=== PATIENT | male | born 1955 | race Caucasian/White ===

== ENCOUNTER 2021-10-12 00:47 | Outpatient (CLI) | payer MEDICARE, OTHER, SELFPAY ==
[2021-10-12 09:20] VITALS: BP 143/87; PULSE 90; RESP 18; TEMP 36.9; O2SAT 94
[2021-10-12] MEDS: Normal Saline 500 ML 30 ML IV (09:35)
[2021-10-12 09:40] VITALS: BP 115/75; PULSE 88; RESP 16; TEMP 36.6; O2SAT 94
[2021-10-12 10:01] VITALS: BP 123/80; PULSE 88; RESP 18; TEMP 36.7; O2SAT 95
[2021-10-12] MEDS: Normal Saline Flush 10 ML SYR IVP (10:17)
[2021-10-12 10:57] VITALS: BP 125/82; PULSE 84; RESP 18; TEMP 36.6; O2SAT 94
== END 2021-10-12 00:48 | disposition home or self-care (01) ==
LOC: INF 00:48
PROVIDERS: Visit Provider Family Medicine
DX: U07.1 COVID-19 (principal)
CPT/HCPCS: 96365

== ENCOUNTER 2022-02-11 08:53 | Day surgery (SDC) | payer MEDICARE, OTHER, SELFPAY ==
[2022-02-11 09:21] VITALS: BP 136/86; PULSE 77; RESP 18; TEMP 36.3; O2SAT 98
[2022-02-11] MEDS: Tropicam./Phenyleph. (1/2.5%) 5 ML BTL OS ×3 (09:30→09:44)
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
[2022-02-11 09:50] VITALS: BMI 29.7
[2022-02-11] MEDS: Tetracaine 0.5% 4 ML BTL OS (10:17)
[2022-02-11] MEDS: Balanced Salt Soln.-PLUS 500 ML BAG (10:17)
[2022-02-11] MEDS: Lidocaine 2% Jelly 6 ML SYR (10:18)
[2022-02-11] MEDS: Duovisc Viscoelastic System EACH 1 EACH (10:18)
[2022-02-11] MEDS: Povidone-Iodine Ophth 30 ML BTL (10:19)
[2022-02-11 10:40] VITALS: BP 97/85; PULSE 75; RESP 17; TEMP 36.1; O2SAT 94
--- NOTE | 2022-02-11 10:42 | W.PM.DSUDISC ---
Discharge Plan Disposition Patient Disposition: HOME Condition: Good Discharge Details Attending Provider: Mainor Cuadra Primary Care Provider: Lashae Britton Home Meds and New Rx's Prescriptions: No Action metformin 500 mg Tablet 500 mg PO BID 0RF triamcinolone acetonide 0.5 % Cream 1 applic TOPICAL DIRECTED 0RF metoprolol succinate 100 mg Tablet Extended Release 24 Hr 100 mg PO HS 0RF losartan-hydrochlorothiazide 100-25 mg Tablet 1 tab PO DAILY 0RF terbinafine HCl 250 mg Tablet 250 mg PO DAILY 0RF multivitamin Tablet 1 tab PO DAILY 0RF Fish Oil Capsule 1 cap PO DAILY 0RF cholecalciferol (vitamin D3) [Vitamin D3] 50 mcg (2,000 unit) Tablet 50 mcg PO DIRECTED 0RF Discharge Instructions Stand Alone Forms: Post-op Topical Cataract, Cat Keane ([facility]U) Discharge Orders Discharge Orders: Discharge Order (Routine); Ordered 02/11/22 Ordered By: Mainor Cuadra DS: Diagnosis Discharge Diagnosis (1) Nuclear sclerotic cataract of right eye: Status: Resolved (2) Cortical cataract of right eye: Status: Resolved
--- NOTE | 2022-02-11 10:43 | W.PM.OP ---
Date of service: 02/11/22 Time of Service: 10:43 Operative Note Operative Note DATE OF PROCEDURE: 02/11/22 PRE-OP DIAGNOSIS: Nuclear/cortical cataract, right eye POST-OP DIAGNOSIS: same PROCEDURE: Cataract extraction using phacoemulsification with intraocular lens implant, right eye SURGEON: Mainor Cuadra ANESTHESIA TYPE: Local By Surgeon and MAC Refer to Anesthesia Record ESTIMATED BLOOD LOSS: 0 PATHOLOGY: none sent COMPLICATIONS: None Patient was transported to: same day Patient's condition: stable Implants: Carlos Enrique [employer] Carlos Enrique/RANJITH Tecnis [id number] Indications: Progressive visual loss due to cataract, right eye Procedure Description: CATARACT SURGERY OPERATIVE REPORT PREOPERATIVE DIAGNOSIS: 1. Nuclear/cortical cataract, POSTOPERATIVE DIAGNOSIS: Same OPERATION: 1. Cataract extraction using phacoemulsification with posterior chamber intraocular lens implant, right eye. IOL: IOL Assurance Sourcing Manager/Model: Carlos Enrique & Carlos Enrique / RANJITH Tecnis [id number] IOL Power: + 70 diopters IOL Serial Number: [id number] Optic Diameter: 6.0mm Haptic/Overall Diameter: 13.0mm PHACO INFO: [facility] Vision System with OZil and Active [employer]uid[employer] Cumulative Dispersed Energy (CDE): 8.6 seconds SURGEON: Mainor Cuadra MD, JUANA ANESTHESIA: Monitored Anesthesia Care (MAC), with local sub-tenon's anesthetic infiltration COMPLICATIONS: None SPECIMENS: None INDICATIONS FOR PROCEDURE: The patient is a 66-year-old gentleman with history of diminished visual acuity in his right eye secondary to the development of nuclear and cortical cataract. The option of cataract surgery was offered to the patient and he felt he was symptomatic enough that he wished to PROCEDURE: The correct surgical eye was identified and marked as the right eye and the pupil was dilated in the preoperative area using mydriatics and cycloplegics. The dilated pupil size was seven-point mm. Oral sedation was administered in the form of an Imprimis MKO Melt (midazolam 3mg/ketamine 25mg/ondansetron 2mg). The patient was brought to the operating room where cardiopulmonary monitoring was instituted and surgical time-out was performed, confirming the correct operative eye and IOL power. Topical anesthesia was administered and ophthalmic povidone-iodine 5% was instilled into the conjunctival fornices. Lidocaine gel was applied to the cornea and the terri-ocular area was prepped with Betadine 10% solution and draped in the usual sterile fashion for intraocular surgery, including an aperture drape. A Tegaderm transparent film dressing was cut in half and used to cover the lashes and lid margins. Care was taken to sequester the lashes and lid margins under the Tegaderm dressing. A lid speculum was placed between the lids of the operative eye and the José Miguel [employer] operating microscope was maneuvered into position. Dora scissors were then used to make a conjunctival buttonhole approximately 6mm posterior to the limbus in the inferonasal quadrant. Blunt dissection was carried out to expose bare sclera, and a blunt-tipped sub-tenon?s anesthesia cannula was introduced and passed posteriorly along the globe where non-preserved plain lidocaine was injected into posterior sub-Tenon?s space. A sideport knife was used to make a paracentesis port inferotemporally. Intraocular phenylephrine/lidocaine was injected into the anterior chamber. The anterior chamber was filled with viscoelastic. A 2.4mm keratome knife was used to create a half-thickness groove at the limbus and then to construct a three-plane near-clear corneal tunnel extending 2.0mm into clear cornea superiortemporally. A flap was raised on the anterior capsule and capsulorhexis forceps were used to complete a continuous curvilinear capsulorhexis of 5 mm. Balanced salt solution was then used to perform cortical cleaving hydrodissection and nuclear hydrodelineation until the lens could be freely rotated within the capsular bag. The lens nucleus was then disassembled and removed within the capsular bag and iris plane using phacoemulsification. Residual cortical material was removed using the I/A handpiece. The posterior capsule was carefully polished to remove as much residual lens epithelial cells as safely possible. The capsular bag was then inflated and the anterior chamber deepened with viscoelastic. The lens implant described above was inserted into the capsular bag using the RANJITH [place] Injector. A Kuglen hook was used to dial the IOL into position. Residual viscoelastic was then removed first from posterior to the IOL, then from the anterior chamber using the I/A handpiece. The lens implant was noted to center nicely within the capsular bag. The incisions were stromally hydrated, and the anterior chamber was reformed using BSS. Then 0.5cc of moxifloxacin 1.0mg/ml were injected into the capsular bag and anterior chamber. The incisions were checked with a Weck spear and found to be secure. Several drops of ophthalmic povidone-iodine 5% were then applied to the eye followed by two drops of Imprimis combination prednisolone/moxifloxacin/nepafenac solution. The drapes were removed and a clear plastic protective eye shield was placed over the eye. The patient was then returned to Same Day Surgery in stable condition.
--- NOTE | 2022-02-11 10:56 | W.ANESPOSTOP ---
Postoperative Evaluation Date, Time and Location Date Performed: 02/11/22 Time Performed: 10:45 Patient Location: Day Surgery Unit Vital Signs Most Recent Imported Vital Signs: Most Recent Vital Signs Temp Pulse Resp BP Pulse Ox 36.1 C L 75 17 97/85 L 94 02/11/22 10:40 02/11/22 10:40 02/11/22 10:40 02/11/22 10:40 02/11/22 10:40 Pain Score Most Recent Pain Score: Most Recent Pain Score Pain Level 0 02/11/22 10:40 Assessment Mental Status: Awake (Alert & Oriented to Patient Baseline) Airway and Respiratory Function: Patent airway with normal (patient baseline) respiratory exam Cardiovascular Function: Hemodynamically Stable Hydration Status: Adequately Hydrated Nausea & Vomiting: No Nausea or Vomiting Pain: Pt. Denies Any Pain Peripheral Nerve Block: Patient did not receive a nerve block
[2022-02-11 11:05] VITALS: BP 104/71; PULSE 73; RESP 16; TEMP 36.3; O2SAT 94
== END 2022-02-11 11:18 | disposition home or self-care (01) ==
PROVIDERS: PCP Physician Assistant Medical; Visit Provider Ophthalmology
PROC: (CPT 66984; principal; 2022-02-11 10:30)
DX: H25.11 Age-related nuclear cataract, right eye (principal); E11.9 Type 2 diabetes mellitus without complications; E78.1 Pure hyperglyceridemia; E55.9 Vitamin D deficiency, unspecified
CPT/HCPCS: 66984; V2632

== ENCOUNTER 2022-06-03 07:25 | Day surgery (SDC) | payer MEDICARE, OTHER, SELFPAY ==
[2022-06-03 07:25] VITALS: BP 127/75; PULSE 67; RESP 18; TEMP 36.5; O2SAT 98
[2022-06-03] MEDS: Tropicam./Phenyleph. (1/2.5%) 5 ML BTL OS ×3 (07:40→07:53)
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
[2022-06-03 08:13] VITALS: BMI 28.7
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
[2022-06-03] MEDS: Lidocaine 2% Jelly 6 ML SYR (08:50)
[2022-06-03] MEDS: Tetracaine 0.5% 4 ML BTL OS (08:50)
[2022-06-03] MEDS: Balanced Salt Soln.-PLUS 500 ML BAG (08:55)
[2022-06-03] MEDS: Povidone-Iodine Ophth 30 ML BTL (09:13)
[2022-06-03 09:17] VITALS: BP 119/79; PULSE 66; RESP 16; TEMP 36.9; O2SAT 96
--- NOTE | 2022-06-03 09:17 | W.PM.DSUDISC ---
Discharge Plan Disposition Patient Disposition: HOME Condition: Good Discharge Details Attending Provider: Mainor Cuadra Primary Care Provider: Lashae Britton Home Meds and New Rx's Prescriptions: No Action metformin 500 mg Tablet 500 mg PO BID triamcinolone acetonide 0.5 % Cream 1 applic TOPICAL DIRECTED metoprolol succinate 100 mg Tablet Extended Release 24 Hr 100 mg PO HS losartan-hydrochlorothiazide 100-25 mg Tablet 1 tab PO DAILY terbinafine HCl 250 mg Tablet 250 mg PO DAILY multivitamin Tablet 1 tab PO DAILY Fish Oil Capsule 1 cap PO DAILY cholecalciferol (vitamin D3) [Vitamin D3] 50 mcg (2,000 unit) Tablet 50 mcg PO DIRECTED Discharge Instructions Stand Alone Forms: Post-op Topical Cataract, Cat Keane ([facility]U) Discharge Orders Discharge Orders: Discharge Order (Routine); Ordered 06/03/22 Ordered By: Mainor Cuadra DS: Diagnosis Discharge Diagnosis (1) Nuclear sclerotic cataract of left eye: Status: Resolved (2) Cortical cataract of left eye: Status: Resolved
--- NOTE | 2022-06-03 09:18 | ROE_ITS ---
Date of service: 06/03/22 Time of Service: 09:18 Operative Note Operative Note DATE OF PROCEDURE: 06/03/22 PRE-OP DIAGNOSIS: Nuclear/cortical cataract, left eye POST-OP DIAGNOSIS: same PROCEDURE: Cataract extraction using phacoemulsification with intraocular lens implant, left eye SURGEON: Mainor Cuadra ANESTHESIA TYPE: Local By Surgeon and MAC Refer to Anesthesia Record PATHOLOGY: none sent COMPLICATIONS: None Patient was transported to: same day Patient's condition: stable Implants: Carlos Enrique and Carlos Enrique / [employer] Tecnis [id number] Indications: Progressive decreased vision due to cataract, left eye Procedure Description: CATARACT SURGERY OPERATIVE REPORT PREOPERATIVE DIAGNOSIS: 1. Nuclear/cortical cataract, left eye POSTOPERATIVE DIAGNOSIS: Same OPERATION: 1. Cataract extraction using phacoemulsification with posterior chamber intraocular lens implant, left eye. IOL: IOL Automotive Light Mechanic/Model: Carlos Enrique & Carlos Enrique / RANJITH Tecnis [id number] IOL Power: + 17.0 diopters IOL Serial Number: [id number] Optic Diameter: 6.0 mm Haptic/Overall Diameter: 13.0 mm PHACO INFO: [employer] Vision System with OZil and Active Fluidics Cumulative Dispersed Energy (CDE): 6.03 seconds SURGEON: Mainor Cuadra MD, JUANA ANESTHESIA: Monitored A [facility] (MAC), with local sub-tenon's anesthetic infiltration COMPLICATIONS: None SPECIMENS: None INDICATIONS FOR PROCEDURE: The patient is a 66-year-old gentleman with history of diminished visual acuity in both eyes secondary to development of bilateral cataract. He has already undergone cataract surgery in the right eye on 02/11/2022 and is doing well postoperatively. He now presents for cataract surgery in the left eye. PROCEDURE: The correct surgical eye was identified and marked as the left eye and the pupil was dilated in the preoperative area using mydriatics and cycloplegics. The dilated pupil size was 7.0 mm. . The patient elected to proceed without oral sedation. The patient was brought to the operating room where cardiopulmonary monitoring was instituted and surgical time-out was performed, confirming the correct operative eye and IOL power. Topical anesthesia was administered and ophthalmic povidone-iodine 5% was instilled into the conjunctival fornices. Lidocaine gel was applied to the cornea and the terri-ocular area was prepped with Betadine 10% solution and draped in the usual sterile fashion for intraocular surgery, including an aperture drape. A Tegaderm transparent film dressing was cut in half and used to cover the lashes and lid margins. Care was taken to sequester the lashes and lid margins under the Tegaderm dressing. A lid speculum was placed between the lids of the operative eye and the José Miguel [employer] operating microscope was maneuvered into position. Dora scissors were then used to make a conjunctival buttonhole approximately 6mm posterior to the limbus in the inferonasal quadrant. Blunt dissection was carried out to expose bare sclera, and a blunt-tipped sub-tenon?s anesthesia cannula was introduced and passed posteriorly along the globe where non- preserved plain lidocaine was injected into posterior sub-Tenon?s space. A sideport knife was used to make a paracentesis port superiorly/superiortemporally. Intraocular phenylephrine/lidocaine was injected int the anterior chamber.. At this point, the patient decided he wanted oral sedation. Oral sedation was administered in the form of an Imprimis MKO Melt (midazolam 3mg/ketamine 25mg/ondansetron 2mg) The anterior chamber was filled with viscoelastic. A keratome knife was used to construct a 2-plane near-clear corneal tunnel extending 2.0mm into clear cornea temporally. A flap was raised on the anterior capsule and capsulorhexis forceps were used to complete a continuous curvilinear capsulorhexis of 5.0 mm. Balanced salt solution was then used to perform cortical cleaving hydrodissection and nuclear hydrodelineation until the lens could be freely rotated within the capsular bag. The lens nucleus was then disassembled and removed within the capsular bag and iris plane using phacoemulsification. Residual cortical material was removed using the 45-degree angled silicone I/A tip with 0.3mm port. The posterior capsule was carefully polished to remove as much residual lens epithelial cells as safely possible. The capsular bag was then inflated and the anterior chamber deepened with viscoelastic. The lens implant described above was inserted into the capsular bag using the RANJITH Chandler Injector. A Kuglen hook was used to dial the IOL into position. Residual viscoelastic was then removed first from posterior to the IOL, then from the anterior chamber using the I/A handpiece. The lens implant was noted to center nicely within the capsular bag. The incisions were stromally hydrated, and the anterior chamber was reformed using BSS. Then 0.5cc of moxifloxacin 1.0mg/ml were injected into the capsular bag and anterior chamber. The incisions were checked with a Weck spear and found to be secure. Several drops of ophthalmic povidone-iodine 5% were then applied to the eye followed by two drops of Imprimis combination prednisolone/moxifloxacin/nepafenac solution. The drapes were removed and a clear plastic protective eye shield was placed over the eye. The patient was then returned to Same Day Surgery in stable condition.
--- NOTE | 2022-06-03 09:31 | W.ANESPOSTOP ---
Postoperative Evaluation Date, Time and Location Date Performed: 06/03/22 Time Performed: : Patient Location: Day Surgery Unit Vital Signs Most Recent Imported Vital Signs: Most Recent Vital Signs Temp Pulse Resp BP Pulse Ox 36.9 C 66 16 119/79 96 06/03/22 09:17 06/03/22 09:17 06/03/22 09:17 06/03/22 09:17 06/03/22 09:17 Pain Score Most Recent Pain Score: Most Recent Pain Score Pain Level 0 06/03/22 09:17 Assessment Mental Status: Awake (Alert & Oriented to Patient Baseline) Airway and Respiratory Function: Patent airway with normal (patient baseline) respiratory exam Cardiovascular Function: Hemodynamically Stable Hydration Status: Adequately Hydrated Nausea & Vomiting: No Nausea or Vomiting Pain: Pt. Denies Any Pain Peripheral Nerve Block: Patient did not receive a nerve block
[2022-06-03 09:46] VITALS: BP 94/56; PULSE 63; RESP 16; TEMP 36.3; O2SAT 96
== END 2022-06-03 09:51 | disposition home or self-care (01) ==
PROVIDERS: PCP Physician Assistant Medical; Visit Provider Ophthalmology
PROC: (CPT 66984; principal; 2022-06-03 09:30)
DX: H25.12 Age-related nuclear cataract, left eye (principal)
CPT/HCPCS: 66984; V2632

== ENCOUNTER 2023-06-12 17:57 | Outpatient (CLI) | payer MEDICARE, OTHER, SELFPAY ==
--- NOTE | 2023-06-12 | DI.RAD_ITS ---
Exam(s) XR CHEST 2V PA LATERAL EXAM: XR CHEST 2V PA LATERAL CLINICAL HISTORY: SHORTNESS OF BREATH TECHNIQUE: 2D digital imaging was performed of the chest. Two images were obtained. PA and lateral views were obtained. COMPARISON: No exams were available for comparison FINDINGS: MEDIASTINUM: There is prominence of the right hilum. HEART: Normal. PULMONARY VASCULATURE: Normal. LUNGS: There are bilateral basilar linear infiltrates present, left greater than right. PLEURAL SPACE: No pleural effusion or pneumothorax. BONE:Within normal limits for the patient's age. OTHER FINDINGS:Normal. IMPRESSION: 1. Bilateral basilar infiltrates. This may represent atelectasis, pneumonia or scarring. 2. Prominence of the right hilum. Adenopathy, central mass or pulmonary vascular enlargement/pulmona ry hypertension should be considered. 3. CT scan of the chest should be considered for further evaluation. Unexpected findings DATA REPOSITORY: RADIATION DOSE DELIVERED:
--- NOTE | 2023-06-12 18:38 | DI.VRAD_ITS ---
PROCEDURE INFORMATION: Exam: XR Chest Exam date and time: 06/12/2023 6:09 PM Age: 68 years old Clinical indication: Shortness of breath TECHNIQUE: Imaging protocol: Radiologic exam of the chest. Views: 2 views. COMPARISON: No relevant prior studies available. FINDINGS: Lungs: There is pulmonary vascular congestion with cephalization of flow and slightly increased interstitial markings. Linear opacities in both lung bases most likely reflect atelectasis. Pleural spaces: Unremarkable. No pleural effusion. No pneumothorax. Heart/Mediastinum: The heart is mildly enlarged. Bones/joints: Unremarkable. IMPRESSION: Cardiomegaly and mild vascular congestion. Bibasilar atelectasis. Dictated and Authenticated by: Junior Vyas MD. Ordering:HUBER Juarez MD
== END 2023-06-12 18:17 ==
LOC: DI 18:03
PROVIDERS: PCP Physician Assistant Medical; Visit Provider Family Medicine
DX: R91.8 Other nonspecific abnormal finding of lung field (principal); R59.0 Localized enlarged lymph nodes; I51.7 Cardiomegaly
CPT/HCPCS: 71046

== ENCOUNTER 2023-06-13 16:13 | Outpatient (CLI) | payer MEDICARE, OTHER, SELFPAY ==
[2023-06-13 13:57] LABS: Abs Immature Grans 0.07 10^3/uL (0.0-0.06); Absolute Basophil Count 0.05 10^3/uL (0.0-0.2); Absolute Eosinophil Count 0.16 10^3/uL (0.0-0.7); Absolute Lymphocyte Count 1.53 10^3/uL (1.2-3.4); Absolute Monocyte Count 0.63 10^3/uL (0.1-0.8); Absolute Neutrophil Count 7.44 10^3/uL (1.2-6.7); Basophils % 0.5; Eosinophils % 1.6; HCT 41.9 % (40.0-50.0); HGB 13.9 g/dL (13.5-17.5); Immature Grans % 0.7; Lymphocytes % 15.5; MCH 27.9 pg (27.0-33.0); MCHC 33.2 % (32.0-36.0); MCV 84 fL (80-95); MPV 8.9 fL (8.0-11.0); Monocytes % 6.4; Neutrophils % 75.3; Platelet Count 378 10^3/uL (130-400); RBC 4.99 10^6/uL (4.36-5.78); RDW 14.5 % (11.8-14.1); RDW-SD 43.7 fL; WBC 9.88 10^3/uL (4.4-10.8)
[2023-06-13 14:23] LABS: ALT 38 U/L (16-63); AST 26 U/L (15-37); Albumin 2.4 g/dL (3.4-5.0); Alkaline Phosphatase 63 U/L (46-116); Anion Gap 6.9 mmol/L (3-11); BUN 20 mg/dL (7-18); Bilirubin, Total 0.7 mg/dL (0.2-1.0); CO2 28.1 mmol/L (21.0-32.0); CREATININE 1.1 mg/dL (0.70-1.30); Calcium 9.2 mg/dL (8.5-10.1); Chloride 97 mmol/L (98-107); Estimated GFR 72.22 (mL/min/1.73m2); Glucose 139 mg/dL (74-106); NT-proBNP 276 pg/mL (<300); Potassium 3.9 mmol/L (3.5-5.1); Sodium 132 mmol/L (136-145); Total Protein 6.7 g/dL (6.4-8.2)
== END 2023-06-13 16:14 | disposition home or self-care (01) ==
LOC: LBO 16:15
PROVIDERS: PCP Physician Assistant Medical; Visit Provider Family Medicine
DX: R06.00 Dyspnea, unspecified (principal)
CPT/HCPCS: 36415; 80053; 83880; 85025

== ENCOUNTER → 2023-06-19 01:53 | Outpatient (CLI) | payer MEDICARE, OTHER, SELFPAY ==
--- NOTE | 2023-06-19 08:45 | DI.NM_ITS ---
APPROVED REPORT Conclusion This is a resting myocardial perfusion imaging study only. Myocardial perfusion appears normal Left ventricular chamber size and wall thickness also appear normal
== END ==
PROVIDERS: PCP Physician Assistant Medical; Visit Provider Family Medicine
DX: R06.09 Other forms of dyspnea (principal)
CPT/HCPCS: 93016; 93018; 78451

== ENCOUNTER 2023-06-19 11:37 | Inpatient (IN) | payer MEDICARE, OTHER, SELFPAY ==
[2023-06-19] VITALS (67 sets, daily range): BP systolic 70–120; BP diastolic 38–83; PULSE 66–93; RESP 16–35; TEMP 36.4–36.8; O2SAT 88–98
--- NOTE | 2023-06-19 11:30 | RT.EKG_ITS ---
APPROVED REPORT Exam: Resting ECG Reason for Exam: chf Patient Location: E HR:88 bpm ECG Measurements Heart Rate 88 AXIS FL 196 P 26 QRSd 138 QRS 23 QT 379 T -30 QTc 458 Conclusion Sinus rhythm.. V-rate 60- 99 Right bundle branch block. No ST segment or T wave abnormalities to suggest occlusive DC
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
[2023-06-19 12:10] LABS: Abs Immature Grans 0.26 10^3/uL (0.0-0.06); Absolute Basophil Count 0.09 10^3/uL (0.0-0.2); Absolute Monocyte Count 0.97 10^3/uL (0.1-0.8); Basophils % 0.3; HCT 43.1 % (40.0-50.0); HGB 14.2 g/dL (13.5-17.5); Immature Grans % 0.9; Lymphocytes % 3.8; MCH 27.6 pg (27.0-33.0); MCHC 32.9 % (32.0-36.0); MCV 84 fL (80-95); Monocytes % 3.2; Neutrophils % 91.8; Platelet Count 384 10^3/uL (130-400); RBC 5.14 10^6/uL (4.36-5.78); RDW 14.6 % (11.8-14.1); RDW-SD 44.3 fL
[2023-06-19 12:19] LABS: INR 1.1 (0.9-1.1); PTT Activated 24.5 sec (21.5-31.9); Prothrombin Time 11.3 sec (9.3-11.0)
[2023-06-19 12:28] LABS: ALT 39 U/L (16-63); AST 25 U/L (15-37); Albumin 2.6 g/dL (3.4-5.0); Alkaline Phosphatase 49 U/L (46-116); Anion Gap 10.8 mmol/L (3-11); BUN 35 mg/dL (7-18); Bilirubin, Total 0.8 mg/dL (0.2-1.0); CO2 27.2 mmol/L (21.0-32.0); CREATININE 1.8 mg/dL (0.70-1.30); Calcium 10.1 mg/dL (8.5-10.1); Chloride 93 mmol/L (98-107); Estimated GFR 39.99 (mL/min/1.73m2); Glucose 309 mg/dL (74-106); Magnesium 1.4 mg/dL (1.8-2.4); NT-proBNP 218 pg/mL (<300); Potassium 3.1 mmol/L (3.5-5.1); Sodium 131 mmol/L (136-145); Total Protein 6.8 g/dL (6.4-8.2); Troponin I < 50 ng/L (<or=60)
--- NOTE | 2023-06-19 12:30 | DI.CT_ITS ---
Exam(s) CT CHEST PE CTA EXAM: CT CHEST PE CTA CLINICAL HISTORY: short of breath, hypoxic. TECHNIQUE: Imaging Protocol: CT angiography of the chest was performed using pulmonary embolus nancy col. Multi planar reconstructions were performed. CONTRAST MATERIAL: Intravenous: Omnipaque 350 Contrast volume: 100 cc COMPARISON: CR XR CHEST 2V PA LATERAL from 06/19/2023 Chest x-ray 06/12/2023 FINDINGS: CHEST: PULMONARY ARTERIES: There are no intraluminal filling defects to suggest acute pulmonary emboli. LUNGS: There are extensive bilateral confluent pulmonary infiltrates, most prominent in the lower lob es, but also involving posterior segment of the right upper lobe and apical posterior segment of the left upper lobe as well as the right middle lobe and superior lingular segment of the left lung. Alt raven extensive, there is no cavitation of these infiltrates evident at this time. There are no asso ciated pleural effusions. MEDIASTINUM: Slightly enlarged hilar lymph nodes noted bilaterally. Also slightly enlarged subcarina l lymph nodes evident. There is no adenopathy in the anterior mediastinal fat and pretracheal region . Visualized thyroid unremarkable. CARDIAC: Heart size is upper normal. There is no pericardial effusion.Caliber of the thoracic aorta is within normal limits. There is no significant shift of the interventricular septum. PARTIALLY VISUALIZED UPPERMOST ABDOMEN: No obvious findings OSSEOUS: No significant osseous lesions.No fractures.. IMPRESSION: 1. No evidence of acute pulmonary emboli nor pulmonary infarction.. 2. However, there are extensive bilateral pulmonary infiltrates involving all lobes, most prominent i n both lower lobes. Suspect aspiration. 3. There are no pleural effusions. 4. There is mild bilateral hilar and subcarinal adenopathy, most probably reactive. Report called by myself to ER physician RADIATION DOSE DELIVERED: 336.96mGy.cm Total DLP DATA REPOSITORY: All CT scans at this facility are submitted to the National Radiology Data Registry (NRDR) Dose Index Registry (DIR) with the [employer] ([employer]). RADIATION OPTIMIZATION: All CT scans at this facility use at least one of these dose optimization te chniques: automated exposure control; mA and/or kV adjustment per patient size (includes targeted exa ms where dose is matched to clinical indication); or iterative reconstruction.
[2023-06-19 12:34] LABS: Absolute Lymphocyte Count 1.16 10^3/uL (1.2-3.4); Absolute Neutrophil Count 27.95 10^3/uL (1.2-6.7)
[2023-06-19 12:35] LABS: Diff Comment Diff Reviewed; RBC Morphology Normal; WBC 30.45 10^3/uL (4.4-10.8)
--- NOTE | 2023-06-19 12:37 | DI.RAD_ITS ---
Exam(s) XR CHEST 2V PA LATERAL EXAM: XR CHEST 2V PA LATERAL CLINICAL HISTORY: shortness of breath. TECHNIQUE: 2D digital imaging was performed. COMPARISON: CR,XR XR CHEST 2V PA LATERAL from 06/12/2023 CT,NM NM MPI REST OR STRESS ONLY from 06/19/2023 FINDINGS: 2 views: Heart size is normal. The mediastinum is not widened. Appearance of the lung matos is unchanged from 06/12/2023. There are significant infiltrates again noted in the lung matos bilaterally, predominately in the lower half of the lung matos both in the lower lobes, lingular segment of the left lung and right middle lobe. No associated pleural effusion s. No pulmonary edema. No pneumothorax. IMPRESSION: Persistent prominent infiltrates in both lungs without evidence of radiographic improvement when comp ared to 06/12/2023. No obvious pleural effusions. DATA REPOSITORY: RADIATION DOSE DELIVERED:
[2023-06-19 12:40] LABS: D-Dimer 802 ng/mlFEU (<500)
[2023-06-19 13:07] LABS: Lactate 5.2 mmol/L (0.6-1.4)
[2023-06-19] MEDS: Normal Saline 1,000 ML 500 ML IV (13:12)
[2023-06-19] MEDS: Potassium Chloride 20 MEQ TABCR 40 MEQ PO (13:13)
[2023-06-19] MEDS: PIPERACILLIN/TAZO 3.375 GM in Normal Saline 50 ML IVPB ×2 (13:13→21:06)
[2023-06-19] MEDS: Magnesium Gluconate 500 MG TAB 1000 MG PO (13:13)
[2023-06-19 13:43] LABS: COVID-19 PCR Negative (Negative); Influenza A PCR Negative (Negative); Influenza B PCR Negative (Negative); RSV PCR Negative (Negative)
[2023-06-19 13:45] LABS: Source Nasopharynx
[2023-06-19] MEDS: Normal Saline 500 ML IV (14:10)
[2023-06-19] MEDS: LINEZOLID 600 MG/300 ML BAG 300 MG IVPB (14:14)
[2023-06-19] MEDS: Omnipaque 350 MG/ML 100 ML BTL IJ (14:59)
[2023-06-19 15:00] LABS: Bilirubin Negative (Negative); Blood Negative (Negative); Clarity Clear (Clear); Glucose Negative (Negative); Ketones Negative (Negative); Leukocyte Esterase Negative (Negative); Nitrite Negative (Negative); Specific Gravity 1.015 (1.005-1.025); Urobilinogen 0.2 mg/dL (Up to 0.2); pH 6.5 (5-8)
[2023-06-19] MEDS: Normal Saline - Diluent 50 ML VIAL IJ (15:00)
[2023-06-19 15:01] LABS: Lactate 3.7 mmol/L (0.6-1.4)
[2023-06-19 15:03] LABS: pCO2 (Venous) 43 mmHg (41-51); pH (Venous) 7.43 (7.31-7.41); pO2 (Venous) 39 mmHg
[2023-06-19 15:04] LABS: HCO3 (Venous) 28 mmol/L (23-28); TCO2 (Venous) 26 mmol/L (24-29)
[2023-06-19 15:05] LABS: BE (Venous) 4 mmol/L (-2-3)
[2023-06-19 15:06] LABS: O2 Sat (Venous) 69 %
[2023-06-19 15:15] LABS: Troponin I < 50 ng/L (<or=60)
[2023-06-19] MEDS: Normal Saline 500 ML 1000 ML IV (15:36)
[2023-06-19] MEDS: Enoxaparin 40 MG/0.4 ML SYR SC (18:53)
[2023-06-19] MEDS: MAGNESIUM SULFATE 2 GM/50 ML BAG IVPB (18:53)
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
[2023-06-19 20:16] LABS: Lactate 2.3 mmol/L (0.6-1.4)
[2023-06-19 20:28] LABS: Lab Add On Test DONE
[2023-06-19] MEDS: Linezolid 600 MG TAB PO (20:45)
[2023-06-19] MEDS: Insulin Glargine 300 UNITS/3 ML PEN 10 UNITS SC (21:00)
[2023-06-20] VITALS (11 sets, daily range): BP systolic 105–121; BP diastolic 62–74; PULSE 61–92; RESP 16–20; TEMP 35.4–36.9; O2SAT 91–97
--- NOTE | 2023-06-20 | DI.US_ITS ---
APPROVED REPORT EXAM: Comprehensive 2D, Doppler, and color-flow Echocardiogram Patient Location: In-Patient Room/Bed: 212 House Steward/Stewardess: Annamaria Reid RDCS (AE) Indications: Sepsis, Evaluate LV function, SOB Other Information Study Quality: Adequate. Technically limited study due to exam done bedside. Conclusion Normal left ventricular wall thickness and chamber size. Ejection fraction is 55 to 60%. Wall motio n is normal Normal right ventricular size and systolic function Both atria are normal in size There is no structural or hemodynamically significant valvular disease Estimated right ventricular systolic pressure is 13 mmHg Wall motion Left Ventricle The left ventricle is normal size. The left ventricular systolic function is normal. The left ventric ular ejection fraction is within the normal range. There is normal left ventricular wall thickness. T here is normal LV segmental wall motion. There is no ventricular septal defect visualized. LVEF is 57 %. Right Ventricle The right ventricle is normal size. The right ventricular systolic function is normal. Atria The left atrium size is normal. The right atrium size is normal. The interatrial septum is intact wit h no evidence for an atrial septal defect. Aortic Valve The aortic valve is normal in structure. Aortic valve is trileaflet. There is no aortic valvular sten osis. No aortic regurgitation is present. Mitral Valve The mitral valve is normal in structure. No evidence of mitral valve stenosis. Trace mitral regurgita tion. Tricuspid Valve The tricuspid valve is normal in structure. There is no tricuspid valve stenosis. Trace tricuspid reg urgitation. Pulmonic Valve The pulmonary valve is normal in structure. There is no pulmonic valvular stenosis. Trace pulmonic re gurgitation. Great Vessels The aortic root is normal in size. The ascending aorta is normal in size. Aortic arch is normal in ca liber. IVC is normal in size and collapses >50% with inspiration. Pericardium There is no pericardial effusion. 2D Dimensions IVSD d PLAX 0.76 cm M: 0.6-1.2 LVPW d PLAX 0.86 cm M: 0.6 - 1.2 LVID d PLAX 5.54 cm M: 4.2 - 5.8 LVDs 3.85 cm M: 2.5 - 4.0 Ao Root d 3.25 cm M: 3.1 - 3.7 RA Area A4C 10.54 cm2 Ao Asc Diam d 3.28 cm M: 2.6 - 3.4 LV EF Teichholz 56.7 % FS 30.05 % M-Mode TAPSE 2.83 cm (M/F) >1.7 LV Diastology MV E' medial 0.082 (>0.07 m/s) E/A Ratio 0.8 LV E/e MED 8.31 (<14) MV E Vmax 0.69 (0.4-1.3 m/s) MV E' lateral 0.139 (>0.1 m/s) MV A Vmax 0.90 (0.4-1.3 m/s) LV E/e LAT 4.94 (<14) MV E/E' medial 8.31 MV E/E' lateral 4.94 MV (E/E' average) 6.19 Aortic Valve LVOT Vmax 1.15 m/s AoV Area Vmax 2.13 cm2 LVOT Peak Grad 5.3 mmHg LVOT Mean Grad 3.5 mmHg LVOT Diam s 1.90 cm AoV Vmax 1.58 m/s Velocity Ratio 0.73 AoV Peak Grad 10.0 mmHg LVOT SV 69.94 mL AoV Mean Grad 5.5 mmHg AoV Area VTI 2.20 cm2 Mitral Valve MV Vmax TIPS 0.77 m/s MV Mean Grad 1.1 (<2mmHg) MV VTI 0.220 m Pulmonary Valve PV Mean Grad 2.5 mmHg RVOT Peak Gr. 2.13 mmHg RVOT Mean Gr. 1.05 mmHg RVOT VTI 0.142 m RVOT Vmax 0.73 m/s Tricuspid Valve TR Peak Grad 9.7 mmHg TR Vmax 1.56 m/s RA Pressure 3.00 mmHg RVSP (TR) 12.7 mmHg
[2023-06-20] MEDS: POTASSIUM CHLORIDE/0.9% NACL 1,000 ML 100 MEQ IV (01:07)
[2023-06-20] MEDS: PIPERACILLIN/TAZO 3.375 GM in Normal Saline 50 ML IVPB ×4 (01:24→22:51)
[2023-06-20 06:31] LABS: Abs Immature Grans 0.02 10^3/uL (0.0-0.06); Absolute Basophil Count 0.04 10^3/uL (0.0-0.2); Absolute Eosinophil Count 0.07 10^3/uL (0.0-0.7); Absolute Lymphocyte Count 1.58 10^3/uL (1.2-3.4); Absolute Monocyte Count 0.52 10^3/uL (0.1-0.8); Absolute Neutrophil Count 6.96 10^3/uL (1.2-6.7); Basophils % 0.4; Eosinophils % 0.8; HCT 37.3 % (40.0-50.0); HGB 12.2 g/dL (13.5-17.5); Immature Grans % 0.2; Lymphocytes % 17.2; MCH 27.7 pg (27.0-33.0); MCHC 32.7 % (32.0-36.0); MCV 85 fL (80-95); MPV 8.9 fL (8.0-11.0); Monocytes % 5.7; Neutrophils % 75.7; Platelet Count 228 10^3/uL (130-400); RBC 4.41 10^6/uL (4.36-5.78); RDW 14.6 % (11.8-14.1); RDW-SD 45.1 fL; WBC 9.19 10^3/uL (4.4-10.8)
[2023-06-20 06:47] LABS: Anion Gap 3.6 mmol/L (3-11); BUN 29 mg/dL (7-18); CO2 31.4 mmol/L (21.0-32.0); CREATININE 1.4 mg/dL (0.70-1.30); Calcium 8.9 mg/dL (8.5-10.1); Chloride 102 mmol/L (98-107); Estimated GFR 54.07 (mL/min/1.73m2); Glucose 105 mg/dL (74-106); Magnesium 1.8 mg/dL (1.8-2.4); Potassium 3.3 mmol/L (3.5-5.1); Sodium 137 mmol/L (136-145)
[2023-06-20] MEDS: Normal Saline Flush 10 ML SYR IVP ×4 (08:05→14:22)
--- NOTE | 2023-06-20 10:06 | RESPIRATORY ---
RT spoke with patient concerning the use of oxygen at home, patient does not currently use any oxygen at home.
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
[2023-06-20] MEDS: Potassium Chloride 10 MEQ CAPCR 40 MEQ PO ×2 (11:42→18:32)
[2023-06-20] MEDS: Insulin Aspart 300 UNITS/3 ML PEN SC (11:42)
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
[2023-06-20] MEDS: Linezolid 600 MG TAB PO ×2 (11:59→20:07)
--- NOTE | 2023-06-20 13:17 | PHACLINREV_ITS ---
Pharmacy Admission Review - Admission Clinical Review (Last Reviewed 06/19/23 @ 19:25 by Mainor Shine MD) Discharge planning issues (Acute) DVT prophylaxis (Acute) Diabetes mellitus type 2, controlled, without complications (Acute) Unintentional weight loss (Acute) Hypomagnesemia (Acute) Hypokalemia (Acute) Septic shock (Acute) Acute respiratory failure with hypoxia (Acute) Acute kidney injury (Acute) Pneumonia (Acute) aspirin Allergy (Intermediate, Verified 06/03/22 07:40) Hives Resuscitation Status DNR/DNI Height 5 ft 9 in Weight 82 kg - Renal Dosing Renal Dosing: BUN 29 mg/dL (7-18) H 06/20/23 06:15 Creatinine 1.4 mg/dL (0.70-1.30) H 06/20/23 06:15 Medications needing adjustments: Reviewed List of meds needing interventions: eCrCl 56 ml/min, zosyn adjusted from 4.5 q8h to 3.375 q8h (ext infusion), lasix and losartan are on hold d/t ALVARO - Anticoagulation Anticoagulation: Hgb 12.2 g/dL (13.5-17.5) L D 06/20/23 06:15 Hct 37.3 % (40.0-50.0) L 06/20/23 06:15 Plt Count 228 10^3/uL (130-400) 06/20/23 06:15 INR 1.1 (0.9-1.1) 06/19/23 11:57 Creatinine 1.4 mg/dL (0.70-1.30) H 06/20/23 06:15 DVT Prophylaxis: Reviewed Medications: Enoxaparin - Opiate Usage Evaluate Pain Scale/Pains Meds: N/A - Relevant Labs Sodium 137 mmol/L (136-145) 06/20/23 06:15 Potassium 3.3 mmol/L (3.5-5.1) L 06/20/23 06:15 Chloride 102 mmol/L (98-107) 06/20/23 06:15 Magnesium 1.8 mg/dL (1.8-2.4) 06/20/23 06:15 Electrolytes, C-Reactive P, ESR: Reviewed (40 meq PO K+ given) - DM Control DM Control: Glucose 105 mg/dL (74-106) 06/20/23 06:15 Hemoglobin A1c 7.0 % (<5.7) H 06/19/23 11:57 Finger Stick Blood Glucose 149 Finger Stick Blood Glucose 149 Finger Stick Blood Glucose 149 Finger Stick Blood Glucose 115 Finger Stick Blood Glucose 115 Finger Stick Blood Glucose 115 DM Control: Reviewed (aspart per SS) - Cardiac Review Cardiac Review: Troponin I < 50 ng/L (<or=60) 06/19/23 14:47 NT-Pro-B Natriuret Pep 218 pg/mL (<300) 06/19/23 11:57 BP, HR, EF%: Reviewed (takes losartan/hctz and furosemide at home, patient has been hypotensice d/t septic shock) - Qtc Review QTc: Reviewed If Elevated, List meds needing intervention: QTc 458 - IV to PO Switch IV Medications: Reviewed - Home Meds Home Med List reviewed: Reviewed Relevent Home Meds Not ordered & why?: not ordered: vit d, furosemide, losartan/hctz, mvi/fish oil - Current meds Current Medication Order Review: Reviewed (linezolid + zosyn (day 2) continue fo r pneumonia potentially aspiration pna)
[2023-06-20 17:15] LABS: Potassium 2.8 mmol/L (3.5-5.1)
[2023-06-20] MEDS: Enoxaparin 40 MG/0.4 ML SYR SC (17:38)
[2023-06-20] MEDS: predniSONE 20 MG TAB 40 MG PO (17:38)
[2023-06-20 18:12] LABS: Lab Add On Test DONE
[2023-06-20 18:22] LABS: Magnesium 1.6 mg/dL (1.8-2.4)
[2023-06-20] MEDS: POTASSIUM CHLORIDE 10 MEQ/100 ML BAG 100 MEQ IVPB ×4 (18:32→23:15)
[2023-06-20] MEDS: Metoprolol CR 100 MG TABCR PO (20:07)
[2023-06-20] MEDS: Potassium Chloride 10 MEQ CAPCR 20 MEQ PO (20:07)
[2023-06-20 23:27] LABS: Legionella Ag Detection Urine Negative (Negative)
[2023-06-21] VITALS (11 sets, daily range): BP systolic 113–150; BP diastolic 72–88; PULSE 64–80; RESP 18–19; TEMP 35.9–36.7; O2SAT 1–96
[2023-06-21 01:06] LABS: Potassium 4.5 mmol/L (3.5-5.1)
[2023-06-21] MEDS: PIPERACILLIN/TAZO 3.375 GM in Normal Saline 50 ML IVPB ×3 (05:54→21:09)
[2023-06-21 07:48] LABS: Anion Gap 2.7 mmol/L (3-11); BUN 17 mg/dL (7-18); CO2 26.3 mmol/L (21.0-32.0); Calcium 8.4 mg/dL (8.5-10.1); Chloride 105 mmol/L (98-107); Estimated GFR 80.97 (mL/min/1.73m2); Glucose 174 mg/dL (74-106); Magnesium 1.5 mg/dL (1.8-2.4); Potassium 3.9 mmol/L (3.5-5.1); Sodium 134 mmol/L (136-145)
[2023-06-21] MEDS: Potassium Chloride 10 MEQ CAPCR 20 MEQ PO ×3 (08:21→19:26)
[2023-06-21] MEDS: predniSONE 20 MG TAB 40 MG PO (08:21)
[2023-06-21] MEDS: Linezolid 600 MG TAB PO ×2 (08:22→19:26)
[2023-06-21] MEDS: Insulin Aspart 300 UNITS/3 ML PEN SC ×3 (08:26→17:51)
--- NOTE | 2023-06-21 09:11 | PDOC.CMPRO ---
Date of service: 06/21/23 Time of Service: 09:11 Care Management Progress Note Progress Note Text Progress Note Text: S/O: Junior was awake and sitting in his recliner using his personal laptop when CM met with him. At this time Anthony requires close monitoring, IV ABX, medication management and cultures are pending. He reports that he feels good and is eager to discharge. In addition, he would like to establish care with [facility]. CM explained the process and pt plans to follow up with his PCP in [place] until he can establish care elsewhere. . CM will continue to follow. A: 68 year old male admitted to [facility] on 06/19/23 for aspiration pneumonia P: Anthony will likely be discharged home with no new services. He will follow up with his community providers and plan of care and transport with family. CM will follow and assess for discharge needs.
[2023-06-21 10:07] LABS: Lab Add On Test DONE
[2023-06-21] MEDS: MAGNESIUM SULFATE 4 GM/100 ML BAG IVPB (10:40)
[2023-06-21 10:56] LABS: Procalcitonin 0.3 ng/mL
[2023-06-21] MEDS: Pantoprazole 40 MG TABCR PO (12:06)
--- NOTE | 2023-06-21 15:56 | SP_ITS ---
Date of service: 06/21/23 Time of Service: 15:56 Subjective Clinical (Bedside) Swallow Evaluation Speech Language Pathology Patient referred for Clinical Swallow Evaluation from Dr Shine given question of Aspiration PNA. Precautions: Fall, Standard, Full Code SUBJECTIVE: Patient received alert/awake, agreeable to evaluation, able to communicate wants/needs effectively; able to demonstrate comprehension of recommendations for safe p.o. intake upon discharge once deemed medically stable.? Patient up to chair at bedside working on his laptop. IMPRESSIONS ? HPI: Pt is a 68 year old M admitted with acute respiratory failure with no known underlying disease, found also to be in septic shock and with bilateral diffuse infiltrates and no hx dysphagia. Of note, he has recent 6 month history of unintentional weight loss (30 lbs). Predisposing dysphagia risk factors: DM2 Clinical signs of possible chronic dysphagia: question of aspiration PNA on admission due to ?chest imaging Precipitating dysphagia risk factors / triggering event: n/a ? IMPRESSIONS & PLAN: Patient presents with safe/functional swallow on clinical exam and normal oral/motor exam. He denies any swallowing difficulties. He does experience occasional heartburn and endorses mild dry mouth. Provided education and recommendations for risk management including oral care and reflux counseling. Further WELFARE WORKER services: not warranted ? Instrumentation: N/A ? Diet Texture Modification(s): IDDSI Level(s) SOLIDS 7-Regular Solids LIQUIDS 0-Thin Liquids Medication Intake: Whole with 0-Thin Liquids vs 4-Extremely Thick Liquids (large pills only) RISK MANAGEMENT: HOB upright as tolerated; upright for all PO intake. Encourage physical mobility as tolerated. Oral hygiene minimum of BID/2x per day using friction with toothbrush on all oral structures as tolerated Level of Assistance/Supervision: Independent PO intake only when awake/alert? Posture/Positioning Needs: Maintain upright position at least 30 minutes after meals, Avoid meals/snacks 2- 3 hours prior to reclining/sleeping, Sleep with head of bed elevated to reduce likelihood of nocturnal reflux, Other -------- PFSH All Active Problems?(Updated 06/19/23 @ 19:29 by Mainor Shine MD) Unintentional weight loss (Acute) Hypomagnesemia (Acute) Hypokalemia (Acute) Septic shock (Acute) Acute respiratory failure with hypoxia (Acute) Acute kidney injury (Acute) Pneumonia (Acute) Medical History? Diabetes HTN (hypertension) Hx of hematuria Hypertriglyceridemia Onychomycosis Seborrheic dermatitis Vitamin D deficiency Surgical History? History of cataract surgery [place] OBJECTIVE: Respiratory: tolerating 2L supplemental oxygen Language: Grossly WFL Hearing: WFL for purposes of this evaluation Mental Status: Alert and Oriented person, place, time, event Recall of current events intact Speech: WFL but with mildly hoarse voice in recent weeks Oral Motor Exam: ? Dentition ? Natural dentition ? Good condition ? Oral Mucosa ? Dry Good oral care ? CN V - Trigeminal ? Jaw Movement ? WFL but patient reports feeling stiff ? CN VII ? Labial/Facial ? WFL ? CN IX ? Palate ? WFL ? CN X ? Laryngeal ? Vocal quality ? Rough ? Volitional cough ? Sharp & strong ? CN XII ? Lingual ? WFL ? Volitional Swallow ? Robust laryngeal elevation ? [place] Swallow Protocol Results ? PASS: Complete/uninterrupted without s/sx aspiration ? Food items tested: ?? IDDSI 0: IDDSI 4: IDDSI 7: Oral phase: WFL Pharyngeal phase: WFL Provided education to: Patient Topics Addressed: anatomy/physiology of swallowing mechanism, overt s/sx to monitor for re: potential aspiration of food / liquids, recommendations for improved oral care, relationship between respiratory function changes and deglutition, Rationale for recommendations as outlined below, Reflux counseling Outcome: Verbalized/demonstrated understanding WELFARE WORKER CPT Code: 13697 Clinical Swallowing Evaluation Time spent: 20 minutes Coding Diagnoses CPT Codes EVALUATE SWALLOWING FUNCTION - 00166 ([id number])
--- NOTE | 2023-06-21 17:26 | PGE_ITS ---
Date of Service Date of service: 06/21/23 Time of Service: 10:00 Assessment and Plan Assessment and plan (1) Septic shock: Status: Acute Assessment and plan: Based on initial WBC count, elevated lactate level and hypotension. Cont Zosyn and Linezolid. MRSA pending (2) Acute respiratory failure with hypoxia: Status: Acute Assessment and plan: Continue oxygen 2L NC. No known underlying pulmonary disease. (3) Acute kidney injury: Status: Acute Assessment and plan: Creatinine 1.0 Receiving IV hydration. Monitor. (4) Pneumonia: Status: Acute Assessment and plan: Bilateral, diffuse infiltrates greater in the bases. Potentially aspiration. He denies swallowing difficulties, choking. He was seen by speech and has no swalling concerns. Cont zosyn and linezolid. IS. Acapella. (5) Diabetes: Assessment and plan: Glucose 309 on admission. A1c 7.0 Continue to hold metformin. SS insulin. Glucose 174 today (6) HTN (hypertension): Assessment and plan: Continue to hold antihypertensive med Monitor. (7) Hypokalemia: Status: Acute Assessment and plan: 3,9 Monitor. (8) Hypomagnesemia: Status: Acute Assessment and plan: 1.5 - repleted Monitor. (9) Unintentional weight loss: Status: Acute Assessment and plan: No clear etiology at this time. discussed with Dr Aguiar Subjective Subjective Patient reports: no new complaints, pain is less, tolerating a regular diet, bowel movement, shortness of breath (with exertion) and afebrile; denies diarrhea, nausea or vomiting Interval history since last seen: Awake, alert, pleasant Exam Narrative Exam Narrative: Gen: nontoxic appearing male sitting in bed, daughter in the room. Pleasant and cooperative. HEENT: sclera clear. MMM Neck: No JVD. +FROM Lungs: crackles throughout. Nonlabored breathing. CV: RRR. No murmur appreciated. Abd: Soft, NT, ND. +BS Exts: No pedal edema. No calf tenderness. Psych: Affect appropriate. Normal appearance. Normal insight. Neuro: No focal motor deficits. No tremor. Objective Last Vital Signs Temp 36.7 C 06/21/23 15:15 Pulse 76 06/21/23 15:15 Resp 19 06/21/23 15:15 BP 150/73 H 06/21/23 15:15 Pulse Ox 96 06/21/23 15:15 Laboratory Results - last 24 hr 06/20/23 06/20/23 06/20/23 12:55 16:22 17:40 Sodium Potassium Chloride Carbon Dioxide Anion Gap BUN Creatinine Est GFR (CKD-EPI 2020) Glucose Calcium Magnesium 1.6 L Procalcitonin Urine Legionella Ag Negative Add-On Test Request DONE 06/20/23 06/21/23 06/21/23 22:00 00:55 06:50 Sodium 134 L Potassium Cancelled 4.5 D 3.9 Chloride 105 Carbon Dioxide 26.3 Anion Gap 2.7 L BUN 17 Creatinine 1.0 Est GFR (CKD-EPI 2020) 80.97 Glucose 174 H Calcium 8.4 L Magnesium 1.5 L Procalcitonin Urine Legionella Ag Add-On Test Request 06/21/23 06/21/23 06:50 06:50 Sodium Potassium Chloride Carbon Dioxide Anion Gap BUN Creatinine Est GFR (CKD-EPI 2020) Glucose Calcium Magnesium Procalcitonin 0.3 Urine Legionella Ag Add-On Test Request DONE Time Spent with Patient Time Spent with Patient: 35-49 minutes Time was spent: preparing to see the patient(eg.review tests), ordering medications,tests, procedures, referring, communicating with other health acute care physical therapist, indepentently interpreting results, counseling the patient and care coordination
[2023-06-21] MEDS: Enoxaparin 40 MG/0.4 ML SYR SC (17:51)
[2023-06-21] MEDS: Normal Saline Flush 10 ML SYR IVP (19:36)
[2023-06-21] MEDS: Metoprolol CR 100 MG TABCR PO (21:13)
[2023-06-21 23:33] LABS: Streptococcus Pneumoniae Ag, U Negative (Negative)
[2023-06-22] VITALS (17 sets, daily range): BP systolic 127–142; BP diastolic 74–80; PULSE 63–81; RESP 14–22; TEMP 36.1–36.7; O2SAT 85–97
[2023-06-22] MEDS: PIPERACILLIN/TAZO 3.375 GM in Normal Saline 50 ML IVPB ×3 (06:20→21:21)
[2023-06-22 06:46] LABS: Abs Immature Grans 0.03 10^3/uL (0.0-0.06); Absolute Basophil Count 0.01 10^3/uL (0.0-0.2); Absolute Eosinophil Count 0.01 10^3/uL (0.0-0.7); Absolute Lymphocyte Count 1.25 10^3/uL (1.2-3.4); Absolute Monocyte Count 0.59 10^3/uL (0.1-0.8); Absolute Neutrophil Count 5.59 10^3/uL (1.2-6.7); Basophils % 0.1; Eosinophils % 0.1; HGB 12.4 g/dL (13.5-17.5); Immature Grans % 0.4; Lymphocytes % 16.7; MCH 27.4 pg (27.0-33.0); MCHC 32.6 % (32.0-36.0); MCV 84 fL (80-95); MPV 8.9 fL (8.0-11.0); Monocytes % 7.9; Neutrophils % 74.8; Platelet Count 211 10^3/uL (130-400); RBC 4.52 10^6/uL (4.36-5.78); RDW 14.1 % (11.8-14.1); RDW-SD 43.1 fL; WBC 7.48 10^3/uL (4.4-10.8)
[2023-06-22 07:06] LABS: Anion Gap 9.2 mmol/L (3-11); BUN 16 mg/dL (7-18); CO2 25.8 mmol/L (21.0-32.0); CREATININE 1.1 mg/dL (0.70-1.30); Calcium 8.3 mg/dL (8.5-10.1); Chloride 107 mmol/L (98-107); Estimated GFR 72.22 (mL/min/1.73m2); Glucose 123 mg/dL (74-106); Potassium 3.7 mmol/L (3.5-5.1); Sodium 142 mmol/L (136-145)
[2023-06-22] MEDS: Pantoprazole 40 MG TABCR PO (08:03)
[2023-06-22] MEDS: Potassium Chloride 10 MEQ CAPCR 20 MEQ PO ×3 (08:03→21:18)
[2023-06-22] MEDS: predniSONE 20 MG TAB 40 MG PO (08:04)
[2023-06-22] MEDS: Linezolid 600 MG TAB PO ×2 (08:04→21:18)
--- NOTE | 2023-06-22 08:17 | PDOC.CMPRO ---
Date of service: 06/22/23 Time of Service: :17 Care Management Progress Note Progress Note Text Progress Note Text: S/O: Junior was awake and sitting in his recliner using his personal laptop when CM met with him. He is being treated with IV ABX and on 1.5L NC, does not have O2 at baseline. RT attempting to titrate, today. CM will continue to follow. A: 68 year old male admitted to [facility] on 06/19/23 for aspiration pneumonia P: Anthony will likely be discharged home with no new services. He will follow up with his community providers and plan of care and transport with family. CM will follow and assess for discharge needs.
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
[2023-06-22] MEDS: Insulin Aspart 300 UNITS/3 ML PEN SC ×2 (12:04→17:37)
[2023-06-22] MEDS: Enoxaparin 40 MG/0.4 ML SYR SC (17:37)
[2023-06-22] MEDS: Metoprolol CR 100 MG TABCR PO (21:18)
[2023-06-22] MEDS: Normal Saline Flush 10 ML SYR IVP (21:23)
[2023-06-23] VITALS (14 sets, daily range): BP systolic 124–152; BP diastolic 70–87; PULSE 61–89; RESP 1–18; TEMP 35.6–36.8; O2SAT 81–93
[2023-06-23] MEDS: PIPERACILLIN/TAZO 3.375 GM in Normal Saline 50 ML IVPB (06:20)
[2023-06-23 06:37] LABS: Abs Immature Grans 0.06 10^3/uL (0.0-0.06); Absolute Basophil Count 0.02 10^3/uL (0.0-0.2); Absolute Lymphocyte Count 1.53 10^3/uL (1.2-3.4); Absolute Monocyte Count 0.76 10^3/uL (0.1-0.8); Basophils % 0.2; HGB 12.4 g/dL (13.5-17.5); Immature Grans % 0.7; Lymphocytes % 18.1; MCH 27.7 pg (27.0-33.0); MCHC 32.6 % (32.0-36.0); MCV 85 fL (80-95); MPV 9.3 fL (8.0-11.0); Platelet Count 223 10^3/uL (130-400); RBC 4.47 10^6/uL (4.36-5.78); RDW 14.1 % (11.8-14.1); RDW-SD 43.8 fL; WBC 8.47 10^3/uL (4.4-10.8)
[2023-06-23 06:52] LABS: BUN 16 mg/dL (7-18); CREATININE 0.9 mg/dL (0.70-1.30); Chloride 107 mmol/L (98-107); Estimated GFR 91.88 (mL/min/1.73m2); Glucose 109 mg/dL (74-106); Magnesium 1.8 mg/dL (1.8-2.4); Sodium 142 mmol/L (136-145)
--- NOTE | 2023-06-23 07:08 | NUR.NOTE ---
Nursing Note: this rn was notified of pt low oxygen sat by concrete polisher. on assessment, pleath on vs machine was appropriate. pt denies sob. no acute resp distress noted. placed pt on 3l oxygen via nc and oxygen sat slowly improved to above 90%.
[2023-06-23] MEDS: Albuterol 2.5 MG/3 ML INH SOLN VIAL UPD (07:41)
[2023-06-23] MEDS: predniSONE 20 MG TAB 40 MG PO (07:47)
[2023-06-23] MEDS: Pantoprazole 40 MG TABCR PO (07:47)
[2023-06-23] MEDS: Potassium Chloride 10 MEQ CAPCR 20 MEQ PO (07:47)
--- NOTE | 2023-06-23 07:53 | DI.RAD_ITS ---
Exam(s) XR PORTABLE CHEST AP EXAM: XR PORTABLE CHEST AP CLINICAL HISTORY: worsening respiratory failure. TECHNIQUE: 2D digital imaging was performed. COMPARISON: Prior chest x-ray 06/19/2023 FINDINGS: Single AP portable view. Heart size is upper normal. The mediastinum is not widened. Again noted are significant bilateral infiltrates minimal if any significant improvement when compare d to 4 days ago. No obvious pleural effusions. IMPRESSION: Persistent bilateral pulmonary infiltrates. No pleural effusions. DATA REPOSITORY: RADIATION DOSE DELIVERED:
[2023-06-23 08:47] LABS: Lab Add On Test DONE
[2023-06-23] MEDS: Linezolid 600 MG TAB PO (08:48)
[2023-06-23 09:16] LABS: Procalcitonin < 0.1 ng/mL
[2023-06-23] MEDS: DOXYCYCLINE 100 MG in Normal Saline 100 ML IVPB ×2 (11:59→23:53)
[2023-06-23] MEDS: Insulin Aspart 300 UNITS/3 ML PEN SC ×2 (12:00→16:45)
--- NOTE | 2023-06-23 13:44 | W.PM.PROGNOT ---
Date of Service Date of service: 06/23/23 Time of Service: 13:44 Assessment and Plan Assessment and plan (1) Acute respiratory failure with hypoxia: Status: Acute Assessment and plan: Due to PNA, present on admission. Requiring 3-4 L of O2 this am; now down to 1L. I do think that there is a possibility of underlying sleep apnea, but this would not explain his O2 requirement when awake and sitting up. CXR unchanged. I have changed his abx to doxycycline/ceftriaxone. I will resume home furosemide. We discussed that, if he is not any better by Monday, pulmonology would see him and a bronchoscopy could be considered. (2) Pneumonia: Status: Acute Assessment and plan: CXR unchanged. I do wonder if reflux could be contributing to aspiration PNA. Alternatively, it could be a CAP. Continue PPI. Abx adjusted as above. Repeat sputum C&S. Repeat a COVID swab. Encourage pulmonary toilet. No dysphagia per speech therapy. (3) Septic shock: Status: Resolved Assessment and plan: Abx changed as above. No vasopressor support required at this time. (4) Acute kidney injury: Status: Resolved Assessment and plan: Creatinine 0.9. Stable. Monitor with resumption of furosemide. (5) Diabetes: Assessment and plan: A1c 7.0. BGs are 96-98 ->177. Continue to hold metformin. Contiue SSI. (6) HTN (hypertension): Assessment and plan: Continue toprol XL. Holding HCTZ/losartan. Resume furosemide. (7) Hypokalemia: Status: Resolved Assessment and plan: Decrease potassium supplementation. (8) Hypomagnesemia: Status: Resolved Assessment and plan: Recheck in am. (9) Unintentional weight loss: Status: Acute Assessment and plan: Will need outpatient workup. (10) DVT prophylaxis: Status: Acute Assessment and plan: SC enoxaparin (11) Discharge planning issues: Status: Acute Assessment and plan: Full code Continues to require hospitalization. Should he require oxygen on discharge, it would be a new oxygen order. Subjective Subjective Interval history since last seen: Mr Cruz states that he feels well and that the way he feels does not match his numbers. He does still have a cough productive of yellow sputum. States he had been told he snores at home and he has never had a sleep study. Denies dizziness, CP, SOB, nausea. States he has been having intermittent soft stools. This precedes this hospitalization. After spending a lot of the day and most of the night on RA, he was found to be saturating 71% on RA this morning. This improved to now 89% on 1 L, though he did initially need 4L. Exam Narrative Exam Narrative: General: Pleasant elderly male who is quite comfortable sitting up in a chair, A&Ox3, on 1L of O2 by NC HEENT: EOMI, MMM Heart: RRR, no m/r/g Lungs: Coarse breath sounds on expiration Abdomen: soft, nontender, nondistended Extremities: no edema BLEs Objective Last Vital Signs Temp 36.1 C L 06/23/23 11:06 Pulse 61 06/23/23 11:06 Resp 16 06/23/23 07:53 BP 146/86 H 06/23/23 11:06 Pulse Ox 89 L 06/23/23 11:06 Laboratory Results - last 24 hr 06/23/23 06/23/23 06/23/23 05:40 05:40 05:40 WBC 8.47 RBC 4.47 Hgb 12.4 L Hct 38.0 L MCV 85 MCH 27.7 MCHC 32.6 RDW 14.1 Plt Count 223 MPV 9.3 Immature Gran % 0.7 Neutrophils % 72.0 Lymphocytes % 18.1 Monocytes % 9.0 Eosinophils % 0.0 Basophils % 0.2 Nucleated RBC % 0.0 Absolute Neutrophils 6.10 Absolute Lymphocytes 1.53 Absolute Monocytes 0.76 Absolute Eosinophils 0.00 Absolute Basophils 0.02 Sodium 142 Potassium 4.0 Chloride 107 Carbon Dioxide 27.0 Anion Gap 8.0 BUN 16 Creatinine 0.9 Est GFR (CKD-EPI 2020) 91.88 Glucose 109 H Calcium 8.0 L Magnesium 1.8 Procalcitonin Add-On Test Request DONE 06/23/23 05:40 WBC RBC Hgb Hct MCV MCH MCHC RDW Plt Count MPV Immature Gran % Neutrophils % Lymphocytes % Monocytes % Eosinophils % Basophils % Nucleated RBC % Absolute Neutrophils Absolute Lymphocytes Absolute Monocytes Absolute Eosinophils Absolute Basophils Sodium Potassium Chloride Carbon Dioxide Anion Gap BUN Creatinine Est GFR (CKD-EPI 2020) Glucose Calcium Magnesium Procalcitonin < 0.1 Add-On Test Request Objective Narrative Objective Narrative: CXR: Persistent bilateral pulmonary infiltrates.? No pleural effusions. Time Spent with Patient Time Spent with Patient: 35-49 minutes Time was spent: preparing to see the patient(eg.review tests), obtaining and/or reviewing separately otained hiistory, ordering medications,tests, procedures, referring, communicating with other health career professional, indepentently interpreting results, counseling the patient and care coordination
[2023-06-23] MEDS: cefTRIAXone 2 GM/50 ML BAG IVPB (14:09)
[2023-06-23 14:25] LABS: Source Nasopharynx
--- NOTE | 2023-06-23 14:51 | CMPROGNOTE_ITS ---
Date of service: 06/23/23 Time of Service: 14:51 Care Management Progress Note Progress Note Text Progress Note Text: S/O: Junior was awake and sitting in his recliner using his personal laptop again today when CM met with him. This morning he required 3-4L, now down to 1L NC. At baseline he does not have supplemental O2 and shares that he feels good, but is being told that he's not. He asked CM about changing his PCP to [facility], from [facility]. CM reviewed the process again, provided pt with a list of local PCP's and encouraged him to reach out to [facility] to find out what their process is to establish care if they are accepting new patients. Junior reports that he is going to follow up with his [facility] PCP, then establish care elsewhere when he gets home. CM also provided patient with a brochure for community connections. CM will follow. A: 68 year old male admitted to [facility] on 06/19/23 for aspiration pneumonia P: Anthony will likely be discharged home with no new services. He will follow up with his community providers and plan of care and transport with family. CM will follow and assess for discharge needs.
[2023-06-23 15:03] LABS: COVID-19 PCR Negative (Negative)
[2023-06-23] MEDS: Furosemide 40 MG/4 ML VIAL IVP (15:12)
[2023-06-23] MEDS: Normal Saline Flush 10 ML SYR IVP (15:12)
[2023-06-23] MEDS: Enoxaparin 40 MG/0.4 ML SYR SC (16:45)
[2023-06-23] MEDS: Metoprolol CR 100 MG TABCR PO (22:04)
[2023-06-24] VITALS (15 sets, daily range): BP systolic 131–162; BP diastolic 80–91; PULSE 64–87; RESP 14–22; TEMP 36.2–36.8; O2SAT 84–97
[2023-06-24 07:12] LABS: Abs Immature Grans 0.05 10^3/uL (0.0-0.06); Absolute Basophil Count 0.03 10^3/uL (0.0-0.2); Absolute Eosinophil Count 0.02 10^3/uL (0.0-0.7); Absolute Lymphocyte Count 1.51 10^3/uL (1.2-3.4); Absolute Monocyte Count 0.73 10^3/uL (0.1-0.8); Absolute Neutrophil Count 5.52 10^3/uL (1.2-6.7); Basophils % 0.4; Eosinophils % 0.3; HCT 40.8 % (40.0-50.0); HGB 13.1 g/dL (13.5-17.5); Immature Grans % 0.6; Lymphocytes % 19.2; MCH 27.5 pg (27.0-33.0); MCHC 32.1 % (32.0-36.0); MCV 86 fL (80-95); MPV 8.6 fL (8.0-11.0); Monocytes % 9.3; Neutrophils % 70.2; Platelet Count 191 10^3/uL (130-400); RBC 4.77 10^6/uL (4.36-5.78); RDW 14.2 % (11.8-14.1); RDW-SD 44.1 fL; WBC 7.86 10^3/uL (4.4-10.8)
[2023-06-24] MEDS: Pantoprazole 40 MG TABCR PO (07:21)
[2023-06-24] MEDS: predniSONE 20 MG TAB 40 MG PO (07:21)
[2023-06-24] MEDS: Potassium Chloride 10 MEQ CAPCR 20 MEQ PO (07:38)
[2023-06-24] MEDS: Furosemide 40 MG TAB PO (07:38)
[2023-06-24 07:40] LABS: Anion Gap 6.3 mmol/L (3-11); BUN 16 mg/dL (7-18); C-Reactive Protein 1.38 mg/dL (0.0-0.3); CO2 29.7 mmol/L (21.0-32.0); CREATININE 1.1 mg/dL (0.70-1.30); Calcium 8.4 mg/dL (8.5-10.1); Chloride 106 mmol/L (98-107); Estimated GFR 72.22 (mL/min/1.73m2); Glucose 97 mg/dL (74-106); Magnesium 1.8 mg/dL (1.8-2.4); Potassium 3.8 mmol/L (3.5-5.1); Sodium 142 mmol/L (136-145)
[2023-06-24] MEDS: cefTRIAXone 2 GM/50 ML BAG IVPB (11:45)
[2023-06-24] MEDS: Insulin Aspart 300 UNITS/3 ML PEN SC ×2 (11:46→17:02)
[2023-06-24] MEDS: DOXYCYCLINE 100 MG in Normal Saline 100 ML IVPB (12:46)
[2023-06-24] MEDS: Enoxaparin 40 MG/0.4 ML SYR SC (17:02)
--- NOTE | 2023-06-24 18:03 | W.PM.PROGNOT ---
Date of Service Date of service: 06/24/23 Time of Service: 18:03 Assessment and Plan Assessment and plan (1) Acute respiratory failure with hypoxia: Status: Acute Assessment and plan: Due to PNA, present on admission. Again, Requiring 3 L of O2 this am; now down to 1L. I think there is a fluid overload component. I will increase diuresis. I do think that there is a possibility of underlying sleep apnea, but this would not explain his O2 requirement when awake and sitting up. CXR unchanged. I have changed his abx to doxycycline/ceftriaxone. If he is not any better by Monday, pulmonology would see him and a bronchoscopy could be considered. (2) Pneumonia: Status: Acute Assessment and plan: CXR unchanged. I do wonder if reflux could be contributing to aspiration PNA. Alternatively, it could be a CAP. Continue PPI. Abx adjusted as above. Repeat sputum C&S. COVID negative. Encourage pulmonary toilet. No dysphagia per speech therapy. (3) Septic shock: Status: Resolved Assessment and plan: Abx changed as above. No vasopressor support required at this time. (4) Acute kidney injury: Status: Resolved Assessment and plan: Stable. Monitor with resumption of furosemide. (5) Diabetes: Assessment and plan: A1c 7.0. Continue to hold metformin. Contiue SSI. Had one BG in 300s today, unlike his other BGs. Will not change number operator at this time. (6) HTN (hypertension): Assessment and plan: Continue toprol XL. Holding HCTZ/losartan. Intensify diuresis w/ furosemide. (7) Hypokalemia: Status: Resolved Assessment and plan: Continue potassium supplementation. (8) Hypomagnesemia: Status: Resolved Assessment and plan: Recheck in am. (9) Unintentional weight loss: Status: Acute Assessment and plan: Will need outpatient workup. (10) DVT prophylaxis: Status: Acute Assessment and plan: SC enoxaparin (11) Discharge planning issues: Status: Acute Assessment and plan: Full code Continues to require hospitalization. Should he require oxygen on discharge, it would be a new oxygen order. Subjective Subjective Interval history since last seen: After being down to 0.5 L of O2 by NC last night, he again required 3L of O2 by NC because he was saturating 84% on 0.5L. Denied dizziness, CP, SOB, n/v. He did notice leg swelling today and is wearing TEDs. Exam Narrative Exam Narrative: General: Pleasant elderly male who looks comfortable sitting up in a chair, A&Ox3, on 1L of O2 by NC HEENT: EOMI, MMM Heart: RRR, no m/r/g Lungs: Coarse breath sounds on expiration Abdomen: soft, nontender, nondistended Extremities: no edema BLEs Objective Last Vital Signs Temp 36.4 C L 06/24/23 15:14 Pulse 79 06/24/23 15:14 Resp 22 06/24/23 15:14 BP 137/82 06/24/23 15:14 Pulse Ox 92 06/24/23 15:14 Laboratory Results - last 24 hr 06/24/23 06/24/23 07:00 07:00 WBC 7.86 RBC 4.77 Hgb 13.1 L Hct 40.8 MCV 86 MCH 27.5 MCHC 32.1 RDW 14.2 H Plt Count 191 MPV 8.6 Immature Gran % 0.6 Neutrophils % 70.2 Lymphocytes % 19.2 Monocytes % 9.3 Eosinophils % 0.3 Basophils % 0.4 Nucleated RBC % 0.0 Absolute Neutrophils 5.52 Absolute Lymphocytes 1.51 Absolute Monocytes 0.73 Absolute Eosinophils 0.02 Absolute Basophils 0.03 Sodium 142 Potassium 3.8 Chloride 106 Carbon Dioxide 29.7 Anion Gap 6.3 BUN 16 Creatinine 1.1 Est GFR (CKD-EPI 2020) 72.22 Glucose 97 Calcium 8.4 L Magnesium 1.8 C-Reactive Protein 1.38 H Time Spent with Patient Time Spent with Patient: 25-34 minutes Time was spent: preparing to see the patient(eg.review tests), obtaining and/or reviewing separately otained hiistory, ordering medications,tests, procedures, referring, communicating with other health healthcare economics consultant, indepentently interpreting results, counseling the patient and care coordination
[2023-06-24] MEDS: Furosemide 40 MG/4 ML VIAL IVP (18:18)
[2023-06-24] MEDS: Normal Saline Flush 10 ML SYR IVP (18:19)
[2023-06-24] MEDS: Metoprolol CR 100 MG TABCR PO (21:18)
[2023-06-25] VITALS (9 sets, daily range): BP systolic 130–162; BP diastolic 77–87; PULSE 64–72; RESP 20–22; TEMP 35.8–36.6; O2SAT 90–94
--- NOTE | 2023-06-25 | DI.RAD_ITS ---
Exam(s) XR CHEST 2V PA LATERAL EXAM: XR CHEST 2V PA LATERAL CLINICAL HISTORY: follow up pneumonia. TECHNIQUE: 2D digital imaging was performed. COMPARISON: CR XR PORTABLE CHEST AP from 06/23/2023 FINDINGS: 2 views: Heart size is normal. The mediastinum is not widened. There are persistent bilateral infiltrates again noted. No significant improvement. Slight blunting of the right costophrenic angle may imply small pleural effusion at this time. Findings superimposed upon COPD appearance IMPRESSION: No improvement in the prominent bilateral lower lobe infiltrates.. DATA REPOSITORY: RADIATION DOSE DELIVERED:
[2023-06-25] MEDS: DOXYCYCLINE 100 MG in Normal Saline 100 ML IVPB ×2 (00:28→13:50)
[2023-06-25 07:03] LABS: Absolute Basophil Count 0.03 10^3/uL (0.0-0.2); Absolute Eosinophil Count 0.04 10^3/uL (0.0-0.7); Absolute Monocyte Count 0.82 10^3/uL (0.1-0.8); Absolute Neutrophil Count 6.43 10^3/uL (1.2-6.7); Basophils % 0.3; Eosinophils % 0.4; HCT 41.7 % (40.0-50.0); HGB 13.5 g/dL (13.5-17.5); Immature Grans % 1.1; Lymphocytes % 17.7; MCH 27.4 pg (27.0-33.0); MCHC 32.4 % (32.0-36.0); MCV 85 fL (80-95); Monocytes % 9.1; Neutrophils % 71.4; Platelet Count 206 10^3/uL (130-400); RBC 4.93 10^6/uL (4.36-5.78); RDW 14.4 % (11.8-14.1); RDW-SD 44.3 fL; WBC 9.02 10^3/uL (4.4-10.8)
[2023-06-25 07:22] LABS: Anion Gap 8.4 mmol/L (3-11); BUN 15 mg/dL (7-18); CO2 29.6 mmol/L (21.0-32.0); CREATININE 0.9 mg/dL (0.70-1.30); Calcium 8.1 mg/dL (8.5-10.1); Chloride 104 mmol/L (98-107); Estimated GFR 91.88 (mL/min/1.73m2); Glucose 99 mg/dL (74-106); Magnesium 1.6 mg/dL (1.8-2.4); Potassium 3.3 mmol/L (3.5-5.1); Sodium 142 mmol/L (136-145)
[2023-06-25] MEDS: Potassium Chloride 20 MEQ TABCR PO (08:14)
[2023-06-25] MEDS: Pantoprazole 40 MG TABCR PO (08:15)
[2023-06-25 08:18] LABS: Lab Add On Test DONE
[2023-06-25 08:36] LABS: NT-proBNP 499 pg/mL (<300)
[2023-06-25 08:38] LABS: Lab Add On Test DONE
[2023-06-25] MEDS: MAGNESIUM SULFATE 2 GM/50 ML BAG IVPB (08:51)
[2023-06-25] MEDS: Magnesium Oxide 400 MG TAB 800 MG PO ×2 (08:51→19:22)
[2023-06-25] MEDS: Normal Saline Flush 10 ML SYR IVP (08:54)
[2023-06-25 09:13] LABS: Procalcitonin < 0.1 ng/mL
--- NOTE | 2023-06-25 09:33 | DI.VRAD_ITS ---
PROCEDURE INFORMATION: Exam: XR Chest Exam date and time: 06/25/2023 9:25 AM Age: 68 years old Clinical indication: Condition or disease; Other: Follow up pneumonia TECHNIQUE: Imaging protocol: Radiologic exam of the chest. Views: 2 views. COMPARISON: CR XR PORTABLE CHEST AP 06/23/2023 7:50 AM FINDINGS: Lungs: Patchy opacities in the lung bases may represent atelectasis or pneumonia.. Pleural spaces: There may be small right pleural effusion Heart/Mediastinum: Stable cardiac silhouette Bones/joints: Unremarkable. IMPRESSION: Patchy opacities in the lung bases may represent atelectasis or pneumonia.. Dictated and Authenticated by: Hiram Figueroa MD. Ordering:[facility] Yuan Hare MD
[2023-06-25 10:12] LABS: D-Dimer 567 ng/mlFEU (<500)
[2023-06-25] MEDS: Fluconazole 100 MG TAB 200 MG PO (10:21)
[2023-06-25] MEDS: Insulin Aspart 300 UNITS/3 ML PEN SC ×2 (12:34→17:23)
[2023-06-25] MEDS: cefTRIAXone 2 GM/50 ML BAG IVPB (12:34)
[2023-06-25] MEDS: Potassium Chloride 10 MEQ CAPCR 20 MEQ PO ×3 (12:34→19:22)
--- NOTE | 2023-06-25 15:50 | W.PM.PROGNOT ---
Date of Service Date of service: 06/25/23 Time of Service: 15:50 Assessment and Plan Assessment and plan (1) Acute respiratory failure with hypoxia: Status: Acute Assessment and plan: secondary to pneumonia. intially was dx as aspiration pneumonia but no hx of dysphagia but has symptoms of acid reflux for which he takes antacids occasionally. DIRECTOR OF GLOBAL SALES has cleared his swallowing abilities and he has had no choking spells. I think that he had a bad CAP but his infiltrates and hypoxemia has been slow to resolve. He remains on Ceftriaxone and doxycycline. He remains on Ceftriaxone and doxycycline (originally he was on Zyvox and Zosyn). blood culturres were no growth, initial sputum was NOF, repeat grew Sakina. His CXR demonstrates persistent bilateral lower lobe infiltrates although by my impression it appears slightly improved. I told him that we will have pulmonology see him tomorrow to consider bronchoscopy and have her evaluate his current antibiotics coverage. Patient is completing 5 day course of prednisone 40 mg daily. I do not think that he is either clinically volume overloaded and he does not have the cardiac substrate for CHF i.e. no systolic nor diastolic LV failure and no RV failure nor PHTN. I have stopped his diuretics. (2) Pneumonia: Status: Acute (3) Acute kidney injury: Status: Resolved (4) Diabetes: Assessment and plan: improving on his current regimen of moderate scale novolog w/ meals; glucose 96 at breakfast and 190 at lunch today (5) HTN (hypertension): Assessment and plan: patient is on his Toprol XL 100 mg hs but his losaratan/HCTZ remains on hold (6) Hypokalemia: Status: Resolved Assessment and plan: giving oral replacement; recently exacerbated by lasix. I have stopped his lasix, continue to monitor (7) Hypomagnesemia: Status: Resolved Assessment and plan: replete and monitor (8) Unintentional weight loss: Status: Acute Assessment and plan: Will need outpatient workup. (9) DVT prophylaxis: Status: Acute Assessment and plan: SC enoxaparin (10) Discharge planning issues: Status: Acute Assessment and plan: Full code Continues to require hospitalization. Should he require oxygen on discharge, it would be a new oxygen order. Subjective Subjective Interval history since last seen: Patient states that he feels better today. Overall he feels stronger, less dyspneic, hoarseness has improved. Still w/ cough but not able to mobilize. Appetite is good. He is afebrila and he has been weaned down to 0.5 lpm Exam Narrative Exam Narrative: Alert and oriented x 3, ablt to talk in complete conversations w/out dyspnea or coughing. Lungs: he has fine bibasilar cellophane rales; no rhonchi or wheezing Heart: RRR w/o murmur, rub, gallop Abdomen: soft, nondistended, nontender Legs/feet: no edema Objective Last Vital Signs Temp 36.4 C L 06/25/23 11:39 Pulse 67 06/25/23 11:39 Resp 20 06/25/23 11:39 BP 130/77 06/25/23 11:39 Pulse Ox 94 06/25/23 11:39 Laboratory Results - last 24 hr 06/25/23 06/25/23 06/25/23 06:15 06:15 06:15 WBC 9.02 RBC 4.93 Hgb 13.5 Hct 41.7 MCV 85 MCH 27.4 MCHC 32.4 RDW 14.4 H Plt Count 206 MPV 9.0 Immature Gran % 1.1 Neutrophils % 71.4 Lymphocytes % 17.7 Monocytes % 9.1 Eosinophils % 0.4 Basophils % 0.3 Nucleated RBC % 0.0 Absolute Neutrophils 6.43 Absolute Lymphocytes 1.60 Absolute Monocytes 0.82 H Absolute Eosinophils 0.04 Absolute Basophils 0.03 D-Dimer Sodium 142 Potassium 3.3 L Chloride 104 Carbon Dioxide 29.6 Anion Gap 8.4 BUN 15 Creatinine 0.9 Est GFR (CKD-EPI 2020) 91.88 Glucose 99 Calcium 8.1 L Magnesium 1.6 L NT-Pro-B Natriuret Pep 499 H Procalcitonin Add-On Test Request 06/25/23 06/25/23 06/25/23 06:15 08: 09:40 WBC RBC Hgb Hct MCV MCH MCHC RDW Plt Count MPV Immature Gran % Neutrophils % Lymphocytes % Monocytes % Eosinophils % Basophils % Nucleated RBC % Absolute Neutrophils Absolute Lymphocytes Absolute Monocytes Absolute Eosinophils Absolute Basophils D-Dimer 567 H Sodium Potassium Chloride Carbon Dioxide Anion Gap BUN Creatinine Est GFR (CKD-EPI 2020) Glucose Calcium Magnesium NT-Pro-B Natriuret Pep Procalcitonin < 0.1 Add-On Test Request DONE 06/25/23 Unknown WBC RBC Hgb Hct MCV MCH MCHC RDW Plt Count MPV Immature Gran % Neutrophils % Lymphocytes % Monocytes % Eosinophils % Basophils % Nucleated RBC % Absolute Neutrophils Absolute Lymphocytes Absolute Monocytes Absolute Eosinophils Absolute Basophils D-Dimer Sodium Potassium Chloride Carbon Dioxide Anion Gap BUN Creatinine Est GFR (CKD-EPI 2020) Glucose Calcium Magnesium NT-Pro-B Natriuret Pep Procalcitonin Add-On Test Request DONE Time Spent with Patient Time Spent with Patient: 35-49 minutes Time was spent: preparing to see the patient(eg.review tests), ordering medications,tests, procedures, referring, communicating with other health health care aide, indepentently interpreting results, counseling the patient and care coordination
[2023-06-25 16:21] LABS: Potassium 4.1 mmol/L (3.5-5.1)
[2023-06-25] MEDS: Enoxaparin 40 MG/0.4 ML SYR SC (17:23)
[2023-06-25] MEDS: Metoprolol CR 100 MG TABCR PO (19:22)
[2023-06-26] VITALS (9 sets, daily range): BP systolic 120–162; BP diastolic 70–82; PULSE 68–84; RESP 16–20; TEMP 36.4–36.9; O2SAT 89–95
[2023-06-26] MEDS: DOXYCYCLINE 100 MG in Normal Saline 100 ML IVPB ×2 (00:15→11:11)
[2023-06-26 06:51] LABS: Anion Gap 5.5 mmol/L (3-11); BUN 11 mg/dL (7-18); CO2 28.5 mmol/L (21.0-32.0); CREATININE 0.9 mg/dL (0.70-1.30); Chloride 104 mmol/L (98-107); Estimated GFR 91.88 (mL/min/1.73m2); Glucose 117 mg/dL (74-106); Magnesium 1.8 mg/dL (1.8-2.4); Sodium 138 mmol/L (136-145)
[2023-06-26] MEDS: Fluconazole 100 MG TAB 200 MG PO (08:03)
[2023-06-26] MEDS: Potassium Chloride 10 MEQ CAPCR 20 MEQ PO (08:04)
[2023-06-26] MEDS: Magnesium Oxide 400 MG TAB 800 MG PO ×2 (08:04→21:14)
[2023-06-26] MEDS: Pantoprazole 40 MG TABCR PO (08:04)
[2023-06-26] MEDS: Normal Saline Flush 10 ML SYR IVP (08:05)
--- NOTE | 2023-06-26 10:23 | CMPROGNOTE_ITS ---
Date of service: 06/26/23 Time of Service: 10:23 Care Management Progress Note Progress Note Text Progress Note Text: S/O: Per MD, Junior will likely have new home O2 upon discharge. Pulmonology will not be available until later this week, so he will likely be discharged home with follow up. He would like to change his PCP to [facility]; CM will provide new patient paperwork, and he will have to request that his records are sent to the new office. Recommend that he keeps follow up post hospitalization with his current PCP, as it may take several months to see a new provider at [facility]. CM will continue to follow. A: Anthony is a 68 year old male admitted to [facility] on 06/19/23 for aspiration pneumonia P: Anthony will likely be discharged home with no new services. He will follow up with his community providers and plan of care and transport with family. CM will follow and assess for discharge needs.
[2023-06-26] MEDS: cefTRIAXone 2 GM/50 ML BAG IVPB (11:10)
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
[2023-06-26] MEDS: Insulin Aspart 300 UNITS/3 ML PEN SC (13:51)
--- NOTE | 2023-06-26 16:00 | PGE_ITS ---
Date of Service Date of service: 06/26/23 Time of Service: 16:00 Assessment and Plan Assessment and plan (1) Acute respiratory failure with hypoxia: Status: Acute Assessment and plan: Severe community-acquired pneumonia treated with Zyvox and Zosyn From 06/19/2023 through 06/23/2023 and Rocephin and doxycycline from 06/23/2023 through the present. Patient does not recall his last pneumonia vaccine. We will vaccine with the PCV20 since he can not recall which vaccine he had in the past and he does not have record of his vaccine. I will recheck his CRP and procalcitonin in the a.m. and if normal then stop antibiotics otherwise will complete 10 to 14 days w/ oral antibiotics (augmentin and doxycycline). He will need referral to Dr. George for follow up. He would like to establish new PCP at [facility] but the CM has explained that he needs to make his initial follow up w/ his PCP in [place] then transfer records locally to [facility] (2) Pneumonia: Status: Acute Assessment and plan: as above. (3) Acute kidney injury: Status: Resolved Assessment and plan: resolved (4) Diabetes: Assessment and plan: 107 to 144 today. I have decreased his SSI to insulin sensitive levels now that he is off prednisone (5) HTN (hypertension): Assessment and plan: patient is on his Toprol XL 100 mg hs but his losaratan/HCTZ remains on hold and his BP are stable (6) Hypokalemia: Status: Resolved Assessment and plan: lasix has been dc as he does not show signs of hypervolemia and has no CHF diagnosis. K is now normal at 4.0. I will stop his supplements now that he is no longer on diuretics but if he goes back on losartan w/ HCTZ he may needs small supplement (7) Hypomagnesemia: Status: Resolved Assessment and plan: replete and monitor (8) Unintentional weight loss: Status: Acute Assessment and plan: Will need outpatient workup. (9) DVT prophylaxis: Status: Acute Assessment and plan: SC enoxaparin (10) Discharge planning issues: Status: Acute Assessment and plan: Full code I will have RT do his ambulatory pulse oximetry in the a.m. and set him up for home oxygen then arrange follow up w/ Dr. George Subjective Subjective Interval history since last seen: Overall the patient feels better however he is discouraged that he has not been able to get off oxygen. He seems to be able to be weaned down to 0.5 lpm oxygen at rest but w/ activity he ends back on at least 1 lpm oxygen. I have explained to him that he does not have CHF. His echo shows normal LV and RV function, no diastolic dysfunction, no pulmonary hypertension, no valvular pathology. While he had been on lasix at home this was only recently started under the impression that his dyspnea was d/t CHF when in fact he had pneumonia. With regard to his pneumonia, I have explained to him that while he has clinically improved, ie. no fever, chills, purulent sputum, his CXR is lagging behind in showing any improvement. I explained to him that we do not have any letter of credit clerk this week and that he will likely not get off oxygen before returning home. I am recommending that RT perform ambulatory pulse oximetry study tomorrow to qualify him for home oxygen and that he be set up for home oxygen and we will set him up with follow up w/ Dr. George as outpatient. He has had 7 days of broad spectrum antibiotics (Zosyn & Zyvox 06/19-06/23/23 and Rocephin and doxycycline 06/23- present. I will recheck his CRP and his procalcitonin tomorrow and if normal then stop antibiotics otherwise I will send him home on another 5 to 7 days for total of 10 to 14 days. Prednisone finished yesterday. Exam Narrative Exam Narrative: Junior is sitting up in his chair he is alert and oriented x3 no acute distress not using accessory respiratory muscles. He is currently on 1 L/min per nasal cannula. SPO2 has been 93 to 94%. Lungs are clear anteriorly posterior he still has some fine cellophane rales as well as some bronchovesicular sounds no rhonchi or wheezing Heart is regular rate and rhythm Abdomen soft and nontender nondistended Lower extremities no peripheral cyanosis or edema Objective Last Vital Signs Temp 36.4 C L 06/26/23 14:53 Pulse 75 06/26/23 14:53 Resp 20 06/26/23 08:10 BP 133/79 06/26/23 14:53 Pulse Ox 93 06/26/23 14:53 Laboratory Results - last 24 hr 06/25/23 06/26/23 16:02 06:12 Sodium 138 Potassium 4.1 4.0 Chloride 104 Carbon Dioxide 28.5 Anion Gap 5.5 BUN 11 Creatinine 0.9 Est GFR (CKD-EPI 2020) 91.88 Glucose 117 H Calcium 8.0 L Magnesium 1.8 Time Spent with Patient Time Spent with Patient: 25-34 minutes Time was spent: preparing to see the patient(eg.review tests), ordering medications,tests, procedures, referring, communicating with other health rn coronary care unit (care managers), indepentently interpreting results, counseling the patient and care coordination
[2023-06-26] MEDS: Enoxaparin 40 MG/0.4 ML SYR SC (17:14)
[2023-06-26] MEDS: Metoprolol CR 100 MG TABCR PO (21:14)
[2023-06-27] MEDS: DOXYCYCLINE 100 MG in Normal Saline 100 ML IVPB (01:29)
[2023-06-27] MEDS: Normal Saline Flush 10 ML SYR IVP ×3 (02:29→11:55)
[2023-06-27 03:38] VITALS: BP 128/77; PULSE 80; RESP 20; TEMP 36.6; O2SAT 94
[2023-06-27 07:09] LABS: Absolute Basophil Count 0.05 10^3/uL (0.0-0.2); Absolute Eosinophil Count 0.23 10^3/uL (0.0-0.7); Absolute Lymphocyte Count 1.35 10^3/uL (1.2-3.4); Absolute Monocyte Count 0.72 10^3/uL (0.1-0.8); Absolute Neutrophil Count 7.44 10^3/uL (1.2-6.7); Basophils % 0.5; Eosinophils % 2.3; HCT 41.4 % (40.0-50.0); HGB 13.3 g/dL (13.5-17.5); Lymphocytes % 13.7; MCH 27.5 pg (27.0-33.0); MCHC 32.1 % (32.0-36.0); MCV 86 fL (80-95); MPV 8.8 fL (8.0-11.0); Monocytes % 7.3; Neutrophils % 75.2; Platelet Count 195 10^3/uL (130-400); RBC 4.84 10^6/uL (4.36-5.78); RDW 14.9 % (11.8-14.1); RDW-SD 44.8 fL; WBC 9.89 10^3/uL (4.4-10.8)
[2023-06-27] MEDS: Pantoprazole 40 MG TABCR PO (07:15)
[2023-06-27 07:27] LABS: C-Reactive Protein 4.42 mg/dL (0.0-0.3)
[2023-06-27 07:41] VITALS: BP 128/77; PULSE 69; RESP 19; TEMP 36.6; O2SAT 95
[2023-06-27 07:52] LABS: Procalcitonin < 0.1 ng/mL
[2023-06-27] MEDS: Insulin Aspart 300 UNITS/3 ML PEN SC (09:01)
[2023-06-27] MEDS: Fluconazole 100 MG TAB 200 MG PO (09:01)
[2023-06-27] MEDS: Magnesium Oxide 400 MG TAB 800 MG PO (09:01)
--- NOTE | 2023-06-27 10:34 | PDOC.CMPRO ---
Date of service: 06/27/23 Time of Service: 10:34 Care Management Progress Note Progress Note Text Progress Note Text: S/O:Junior Cruz is a 68 year old male admitted to [facility] on 06/19/23 for aspiration pneumonia P: Anthony will likely be discharged home with no new services. He will follow up with his community providers and plan of care and transport with family. CM will follow and assess for discharge needs.
[2023-06-27 11:07] VITALS: BP 144/79; PULSE 73; RESP 18; TEMP 36.4; O2SAT 92
[2023-06-27 11:40] VITALS: PULSE 79; PULSE 85; PULSE 86; RESP 19; RESP 21; RESP 22; O2SAT 85; O2SAT 90
[2023-06-27] MEDS: Normal Saline 500 ML 30 ML IV (11:55)
[2023-06-27] MEDS: cefTRIAXone 2 GM/50 ML BAG IVPB (11:56)
--- NOTE | 2023-06-27 12:02 | W.PM.PROGNOT ---
Date of Service Date of service: 06/27/23 Time of Service: 12:02 Assessment and Plan Assessment and plan (1) Acute respiratory failure with hypoxia: Status: Acute Assessment and plan: I have asked respiratory therapy to perform spirometry to assess for obstructive airway component to his lung disease. Then if he qualifies respiratory we will set him up for home oxygen. Irregardless whether his insurance will cover it or not the patient needs supplemental home oxygen. As for treatment of his pneumonia will finish out antibiotics today but I think beyond today he does not need further antibiotic therapy given his 3 negative procalcitonin levels and no other evidence of ongoing infection such as fever chills or sputum production. (2) Pneumonia: Status: Acute Assessment and plan: as above. (3) Acute kidney injury: Status: Resolved Assessment and plan: resolved (4) Diabetes: Assessment and plan: Blood sugar has improved since he came off the prednisone. He came in with a lactic acidosis therefore I am reluctant to resume his metformin. Lactate level peaked at 5.2 and had declined down to 2.3. I rechecked it today to make sure it is normalized is now 1.2 which is normal. I suspect his lactic acidosis was secondary to his sepsis and not due to his metformin nevertheless I am not can resume his metformin. Instead we will switch him to Jardiance 10 mg daily. His PCP can further adjust the Jardiance dose and/or add a GLP 1 agent. (5) HTN (hypertension): Assessment and plan: patient is on his Toprol XL 100 mg hs, his losartan/HCTZ was held on admission. I will resume his losartan at a reduced dose of 50 mg daily upon discharge. (6) Hypokalemia: Status: Resolved Assessment and plan: Potassium remains normal at 4.0 he does not require supplementation unless he goes back on a diuretic. However I have discontinued his Lasix as he has no evidence for heart failure no evidence of volume overload at present time. If he requires resumption of his HCTZ for his hypertension that he will need to have some supplement Tatian. (7) Hypomagnesemia: Status: Resolved Assessment and plan: replete and monitor (8) Unintentional weight loss: Status: Acute Assessment and plan: Will need outpatient workup. In light of his persistent basilar infiltrates I think he should pursue fiberoptic bronchoscopy as an outpatient. Patient will be referred to Dr. George for follow-up (9) DVT prophylaxis: Status: Acute Assessment and plan: SC enoxaparin (10) Discharge planning issues: Status: Acute Assessment and plan: Full code Patient underwent amatory pulse oximetry and according to respiratory therapy at rest he does not require oxygen but with any activity he requires 3 L/min to keep his saturation above 90%. We will obtain spirometry to see if he has a component of obstructive airway disease that would qualify him for home oxygen. Subjective Subjective Interval history since last seen: Patient has no acute complaints. No sputum production, not dyspneic at rest but still gets dyspneic w/ activity. Patient is completing antibiotic treatment for pneumonia. He remains on doxycycline and Rocephin however his repeat procalcitonin remains <0.1 x three samples (06/23, 06/25 and 06/27). He was treated w/ Zyvox and Zosyn (Zyvox 06/19-06/23, Zosyn06/19-06/23) and Rocephin and Doxycycline 06/23- present. So he has had total of 9 days of antibiotic coverage. I think that he has had adequate treatment for hos CAP. This issue now is that he still require oxygen therapy and he still has radiologic infiltrates at his bases. I think he need pulmonary referral for bronchoscopy and he needs home oxygen. He has had no chronic lung disease that we are aware although he had been treated for COVID infection in the past. He understands that he needs follow up w/ his PCP in [place], [place] initially then he may choose to transfer to more local PCP (his desire is to follow in [facility]). at present he has been under the care of Lisa Britton in [place], [place]. Exam Narrative Exam Narrative: Junior is sitting up in his chair no acute distress alert and oriented x3 he is wearing his oxygen. SPO2 is 92% on 1 L/min per nasal cannula. Neck Lungs are clear anteriorly posteriorly has some fine rales at both bases along with some bronchovesicular sounds no rhonchi or wheezes Heart is regular rate and rhythm Extremities without peripheral cyanosis or edema Objective Last Vital Signs Temp 36.4 C L 06/27/23 11:07 Pulse 73 06/27/23 11:07 Resp 18 06/27/23 11:07 BP 144/79 H 06/27/23 11:07 Pulse Ox 92 06/27/23 11:07 Laboratory Results - last 24 hr 06/27/23 06/27/23 06/27/23 06:40 06:40 06:40 WBC 9.89 RBC 4.84 Hgb 13.3 L Hct 41.4 MCV 86 MCH 27.5 MCHC 32.1 RDW 14.9 H Plt Count 195 MPV 8.8 Immature Gran % 1.0 Neutrophils % 75.2 Lymphocytes % 13.7 Monocytes % 7.3 Eosinophils % 2.3 Basophils % 0.5 Nucleated RBC % 0.0 Absolute Neutrophils 7.44 H Absolute Lymphocytes 1.35 Absolute Monocytes 0.72 Absolute Eosinophils 0.23 Absolute Basophils 0.05 C-Reactive Protein 4.42 H Procalcitonin < 0.1 Time Spent with Patient Time Spent with Patient: 25-34 minutes Time was spent: preparing to see the patient(eg.review tests), ordering medications,tests, procedures, referring, communicating with other health medical care administrator, indepentently interpreting results, counseling the patient and care coordination
[2023-06-27 12:14] LABS: Lactate 1.2 mmol/L (0.6-1.4)
--- NOTE | 2023-06-27 14:04 | PT.INTREAT ---
Date of service: 06/27/23 Time of Service: 11:11 PT Notes Visit Reasons: Aspiration Pneumonia Inpatient Physical Therapy Treatment Note [facility] Date: 06/27/23 PRECAUTIONS: Fall, standard, activity as tolerated. SUBJECTIVE: Patient ambulating from bathroom back to chair when this therapist arrives, reports he has already walked as well as completed his exercises which he states include LAQ's, SLR's, ankle pumps, marching. Agreeable to therapy. OBJECTIVE: ? PAIN: none reported. VITALS: monitored by nursing staff. ? Gait Training ([id number]): Direct one-on-one instruction and skilled instruction in: [x] movement sequencing [x] turning and movement with proper form [x] Patient education regarding pacing and breathing techniques to maximize activity tolerance? GAIT? Assistive Device: none ? Weight bearing: full Assist: SBA ? Distance:? 350 feet ? Deviation: Patient manages his own O2 tank. Slightly reduced stride length which improves as ambulation continues. Slightly restricted arm swing which improves as ambulation continues. ? STAIRS: Patient ascends and descends 3 four inch steps, 2 six inch steps with bilateral railings, then ascends and descends a full flight of 13 six inch steps with single railing and SBA demonstrating reciprocal gait pattern and good safety awareness. ? ASSESSMENT:? Patient tolerates therapy well PLAN: continue global strengthening per plan of care seeing patient once per day until patient is medically ready for discharge. TREATMENT CODE/TIME: [id number] Gait 10 minutes beginning at 11:11
[2023-06-27 15:26] VITALS: BP 133/81; PULSE 80; RESP 19; TEMP 37; O2SAT 94
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
--- NOTE | 2023-06-27 15:53 | PT.INTREAT ---
PT Notes Visit Reasons: Aspiration Pneumonia Inpatient Physical Therapy Treatment Note [facility] Date: 06/27/2023 PRECAUTIONS: Fall. Standard. Activity as tolerated. SUBJECTIVE: Pt using the toilet when approached for therapy this afternoon, pt agreeable to participating withtherapy after using the toilet. OBJECTIVE: []? PAIN: None reported Gait Training (70162u[15mins]): Direct one-on-one instruction and skilled instruction in: [] employing an assistive device [] modified weight-bearing status [x] movement sequencing [x] turning and movement with proper form [] Provided verbal cues for equipment management and technique []x Provided instruction in gait pattern [] Patient education regarding pacing and breathing techniques to maximize activity tolerance? GAIT? Assistive Device: [none]? Weight bearing: [FWB] Assist: [supervision] ? Distance:? [300'x2] ? Deviation: [low step height and short step length] ? STAIRS: full flight of stairs step through gait pattern, 1handrail, SBA, Assistance with portable 02 tank and tube management, standing rest break at the top of the stairs and jazzy pt reached the bottom for Deep breathing to help with slight SOB. ? ASSESSMENT:? education about energy conservation strategies, DBE and proper usage of acapella and spirometer PLAN: Continue with intervention for pain management as needed, strengthening, bed mobility, transfers, gait, stairs, balance training, and use of assistive device. TREATMENT CODE/TIME: [93113] 3:35-3:50pm
--- NOTE | 2023-06-27 16:18 | PDOC.CMDIS ---
LACE Index Scoring Tool Questions: Length of Stay (in days): 7 - 13 Was the patient admitted via the E.D.?: Yes Comorbidities: Diabetes w/o Complication E.D. Visits: 1 Answers: Total Score: 10 Risk of Readmission: High Risk Care Management Discharge Plan Reason for Hospitalization: aspiration pneumonia Discharge Plan: Junior will be discharged home with new home oxygen provided by [employer] [facility]. He will follow up with his PCP in [facility] and drive himself home with a tank of oxygen provided by [place]. Patient/Family Education Needs: Review of discharge instructions, limitations, activity, medications, follow up plan, discuss Ask Me Three Services Needed at Discharge: Oxygen Therapy
--- NOTE | 2023-06-27 17:37 | RESPIRATORY ---
Addendum entered by Ruddy Juarez 06/27/23 17:38: Prescription for 3L with ambulation. RA at rest. Original Note: Patient was setup today with new home O2 through [facility]. Pt was given portable oxygen concentrator.
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
[2023-06-28 12:27] LABS: Fungitell Qualitative Negative (Negative); Fungitell Quantitative Value 40 pg/mL (<60 pg/mL)
--- NOTE | 2023-06-29 16:14 | RESPIRATORY ---
06/29/23-Email sent to Timothy Rowley at [employer] requesting patient be provided with portable oxygen tanks as it was in the original order placed but patient called advising they only delivered a large backup tank for his portable concentrator. Called patient to let him know that I was advised that he wouldn't need a new order for this and he could call [employer] directly at [phone] and request smaller tanks from the [place] branch.
== END 2023-06-27 17:48 | disposition home or self-care (01) | DRG 871 ==
LOC: ER 15:43 → MS 18:21
PROVIDERS: Internal Medicine; Nurse Practitioner Family; Admitting Provider Family Medicine; Emergency Provider Student in an Organized Health Care Education/Training Program; PCP Physician Assistant Medical; Visit Provider Family Medicine
DX: A41.9 Sepsis, unspecified organism (principal); J18.9 Pneumonia, unspecified organism; J96.01 Acute respiratory failure with hypoxia; R65.21 Severe sepsis with septic shock; N17.9 Acute kidney failure, unspecified; E87.21 Acute metabolic acidosis; N18.9 Chronic kidney disease, unspecified; E11.22 Type 2 diabetes mellitus with diabetic chronic kidney disease; I12.9 Hypertensive chronic kidney disease with stage 1 through stage 4 chronic kidney disease, or unspecified chronic kidney disease; E87.6 Hypokalemia; E83.42 Hypomagnesemia; R63.4 Abnormal weight loss; E78.1 Pure hyperglyceridemia; L21.9 Seborrheic dermatitis, unspecified; Z79.84 Long term (current) use of oral hypoglycemic drugs
CPT/HCPCS: 36410; 36415; 36556; 71275; 76937; 80048; 80053; 82805; 84145; 87040; 87081; 87449; 87635; 87637; 92610; 93005; 93016; 93018; 93306; 94618; 96365; 96366; 97116; 97162; 97530; 99291; J1650; 71045; 71046; 78451; 81003; 83036; 83605; 83735; 83880; 84132; 84484; 85025; 85379; 85610; 85730; 86140; 87070; 87086; 87205; 87899; 93010; 94640; 94667; 94668; 94760; 99223; 99232; 99233; 99239; J1940; J2020; J2543; J3475; J3480; J3490; J7512; J7613

== ENCOUNTER → 2023-07-13 03:35 | Outpatient (CLI) | payer MEDICARE, OTHER, SELFPAY ==
[2023-07-13] MEDS: Normal Saline Flush 10 ML SYR IJ (11:11)
[2023-07-13] MEDS: Normal Saline - Diluent 50 ML VIAL IJ (11:12)
[2023-07-13] MEDS: Omnipaque 350 MG/ML 500 ML BTL-Imaging package 70 ML IJ (11:12)
--- NOTE | 2023-07-13 11:21 | DI.CT_ITS ---
Exam(s) CT CHEST W EXAM: CT CHEST W CLINICAL HISTORY: HILAR LUNG MASS, R91.9. TECHNIQUE: Multi planar reconstructions were performed. CONTRAST MATERIAL: Omnipaque 350; 75 cc COMPARISON: CT,NM NM MPI REST OR STRESS ONLY from 06/19/[address] CHEST PE CTA from 06/19/2023 CR XR CHEST 2V PA LATERAL from 07/13/2023 FINDINGS: CHEST: LUNGS: To the prior chest CT scan 06/19/2023 there is no significant improvement in the extensive sera ateral patchy and confluent infiltrates which are most prominent in the lower half of the lung matos involving both lower lobes basal segments as well as the right middle lobe and lingular segment of t he left lung. Lesser amount of involvement is seen in the upper lobes. There are no pleural effusio ns. MEDIASTINUM: No obvious hilar adenopathy. No mediastinal adenopathy. No axillary nor supraclavicula r adenopathy. There are nodules in both thyroid lobes. CARDIAC: Heart size is normal. There is no pericardial effusion.Caliber thoracic aorta is normal. N o evidence of dissection. VISUALIZED UPPER ABDOMEN:There are no significant adrenal masses. There is a subcapsular finding in the anterior aspect of the left hepatic lobe which is too dense to be a simple cyst. This measures a pproximately 3 cm by 1.7 cm and may represent a hemangioma but difficult to assess on this type of si ngle run study. Less likely metastatic disease. The partially visualized pancreas and spleen appear unremarkable. No ascites evident. OSSEOUS: No significant osseous lesions.No fractures. IMPRESSION: 1. Persistent extensive bilateral patchy and confluent lung infiltrates as described above, not assoc iated with pleural effusions. No cavitation. 2. Incidental finding in the left hepatic lobe is described above. Suspect that these may be an inci dental hemangioma but cannot exclude more concerning liver pathology. 3. RADIATION DOSE DELIVERED: 584.75mGy.cm Total DLP DATA REPOSITORY: All CT scans at this facility are submitted to the National Radiology Data Registry (NRDR) Dose Index Registry (DIR) with the [employer] (ACR). RADIATION OPTIMIZATION: All CT scans at this facility use at least one of these dose optimization te chniques: automated exposure control; mA and/or kV adjustment per patient size (includes targeted exa ms where dose is matched to clinical indication); or iterative reconstruction.
== END ==
PROVIDERS: PCP Physician Assistant Medical; Visit Provider Family Medicine
DX: R91.8 Other nonspecific abnormal finding of lung field (principal)
CPT/HCPCS: 71260

== ENCOUNTER → 2023-07-13 03:35 | Outpatient (CLI) | payer MEDICARE, OTHER, SELFPAY ==
--- NOTE | 2023-07-13 08:00 | DI.RAD_ITS ---
Exam(s) XR CHEST 2V PA LATERAL EXAM: XR CHEST 2V PA LATERAL CLINICAL HISTORY: PNEUMONIA,j18.9. TECHNIQUE: 2D digital imaging was performed. COMPARISON: CT CT CHEST PE CTA from 06/19/2023 CR XR PORTABLE CHEST AP from 06/23/2023 CR,XR XR CHEST 2V PA LATERAL from 06/25/2023 FINDINGS: 2 views: Heart size is normal. The mediastinum is not widened. There are still significant infiltrates the lower half the lung matos, as evident on recent imaging studies including CT scan of 06/19/2023. Minimal if any significant improvement. No pleural effusio ns. IMPRESSION: Persistent significant infiltrates without significant improvement. No obvious pleural effusions. DATA REPOSITORY: RADIATION DOSE DELIVERED:
== END ==
PROVIDERS: PCP Physician Assistant Medical; Visit Provider Internal Medicine
DX: R91.8 Other nonspecific abnormal finding of lung field (principal)
CPT/HCPCS: 71046; 71260

== ENCOUNTER 2023-07-31 08:44 | Day surgery (SDC) | payer MEDICARE, OTHER, SELFPAY ==
[2023-07-31] VITALS (10 sets, daily range): BP systolic 78–103; BP diastolic 40–70; PULSE 73–78; RESP 17–24; TEMP 36.3–36.7; O2SAT 87–92; BMI 26.2
--- NOTE | 2023-07-31 09:11 | W.PM.OP ---
Date of service: 07/31/23 Time of Service: 10:50 Operative Note Operative Note Refer to Anesthesia Record Procedure Description: Bronchoscopy Indication:Interstitial lung disease Procedure performed: Flexible bronchoscopy with BAL, endobronchial brushing and transbronchial biopsies Sedation plan: General anesthesia Informed consent was obtained after the risks and benefits or the procedure were discussed. Anesthesia sedated and intubated the patient. A proper and complete OR compliant time out was performed. The therapeutic 6.2mm Olympus bronchoscope was inserted through the endotracheal tube and inserted into the airways, where 3cc in total of 1% topical lidocaine was used the anesthetize the airways. The trachea was midline and without lesion or injury. The mucosa appeared normal and there were no signs of tracheomalacia. There were multiple nodularities seen which all seemingly were from the tracheal rings. To be safe I did perform and endobronchial brushing on one of the prominent nodularities in the trachea. The sarthak was sharp. All bronchial subsegments were visualized within each lobe and showed some inflammation and moderate white secretions. A bronchoalveolar lavage was performed in the RUL. A total of 120 cc of saline was administered with a return of 30cc. The fluid was slightly cloudy in appearance with notable mucus plugs Next, transbronchial biopsies were obtained from the RUL (x2) and RLL (x2) for [employer] genetic testing. There was no sign of bleeding post biopsy and no evident pneumothorax on fluroscopy. The bronchoscope was then removed and the case terminated. The patient was taken to PACU in stable condition. Post-operative CXR completed with no evidence of a pneumothorax. Samples collected:RUL BAL, bronchial washings, endobronchial brushing, RUL and RLL transbronchial biopsies. Testing ordered:cell diff, bacterial, AFB and fungal cultures, cytopathology, [employer] genetic testing. Complications:None Amanda George MD Pulmonary & Critical Care Medicine
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
[2023-07-31] MEDS: Lactated Ringers 1,000 ML 80 ML IV (09:55)
[2023-07-31] MEDS: Lidocaine 1% Pres-Free 5 ML VIAL (11:03)
--- NOTE | 2023-07-31 11:06 | PAPNONF_PTH ---
PATIENT: Junior Cruz LOC: [facility] U#:[id number] AGE/SX: 68/M ROOM: RE07/31/[address]: Amanda George MD : 1955 BED: DIS: 07/31/2023 SPEC #: [id number] RECD: 07/31/23 13:12 STATUS: ALBER REQ #: [id number] CARLA: 07/31/23 11:[address]: Amanda George DEPT: [facility] Cytology RECD BY: Yari Killian ENTERED: 07/31/23 13:20 SP TYPE: PAPMERRITTF MERVIN DR: Lashae Britton Tissues: 1 - BODY FLUID CYTO(NOT S/U/N/EM)[facility] 2 - BODY FLUID CYTO(NOT S/U/N/EM)[facility] Procedures: BODY FLUID CYTO(NOT SPU/UR/NIP/ENDOM)[facility] Comments: [id number] (SENT FRESH) (REFRIGERATED)
--- NOTE | 2023-07-31 11:22 | DI.RAD_ITS ---
Exam(s) RF FLUORO<1 HOUR EXAM: RF FLUORO<1 HOUR CLINICAL HISTORY: Interstitial lung disease TECHNIQUE: 2D and realtime digital imaging was performed. CONTRAST MATERIAL: Refer to procedure report. COMPARISON: No exams were available for comparison FINDINGS: Fluoroscopy was provided for Dr. Lorenzana during the performance of a transbronchial biopsy. Please refer to the procedure report for complete details. Ka,r=1.49 mGy IMPRESSION: RADIATION DOSE DELIVERED:
[2023-07-31] MEDS: ePHEDrine 25 MG/5 ML Syringe IVP ×2 (12:02→12:19)
--- NOTE | 2023-07-31 12:16 | DI.RAD_ITS ---
Exam(s) XR PORTABLE CHEST AP EXAM: XR PORTABLE CHEST AP CLINICAL HISTORY: s/p transbronchial biopsies. TECHNIQUE: 2D digital imaging was performed. COMPARISON: CR XR CHEST 2V PA LATERAL from 07/13/[address] CHEST W from 07/13/2023 FINDINGS: Single AP portable view. Heart size is upper normal. The mediastinum is not widened. There is no radiographic improvement in the significant bilateral infiltrates which are predominantly in the lower lobes bilaterally. Minimal involvement of the upper lobes. Some involvement of the ri ght middle lobe and lingular segment left lung. Slight increasing involvement when compared to 07/13. This is more evident on the right side. There are no obvious pleural effusions. IMPRESSION: No radiographic improvement in the bilateral infiltrates. Slight worseningof infiltrate on the right side. No obvious pleural effusions. DATA REPOSITORY: RADIATION DOSE DELIVERED:
--- NOTE | 2023-07-31 13:29 | W.ANESPOSTOP ---
Postoperative Evaluation Date, Time and Location Date Performed: 07/31/23 Time Performed: 13:15 Patient Location: Day Surgery Unit Vital Signs Most Recent Imported Vital Signs: Most Recent Vital Signs Temp Pulse Resp BP Pulse Ox 36.3 C L 75 18 101/61 90 L 07/31/23 12:35 07/31/23 12:35 07/31/23 12:35 07/31/23 12:35 07/31/23 12:35 Pain Score Most Recent Pain Score: Most Recent Pain Score Pain Level 0 07/31/23 12:35 Assessment Mental Status: Awake (Alert & Oriented to Patient Baseline) Airway and Respiratory Function: Patent airway with normal (patient baseline) respiratory exam Cardiovascular Function: Hemodynamically Stable Hydration Status: Adequately Hydrated Nausea & Vomiting: No Nausea or Vomiting Pain: Pt. Denies Any Pain Peripheral Nerve Block: Patient did not receive a nerve block Postoperative Comments:: Pt. on 2 LPM NC oxygen, states his breathing is at baseline. He will monitor his oxygen ation at home and adjust his oxygen as he normally does.
[2023-08-02 10:24] LABS: Gram Smear Result Neutrophils Present
[2023-08-07 16:37] LABS: Eosinophils Fluid Relative 6 %; Lymphocytes Fluid Relative 47 %; Mono/Macrophage Fluid Relative 15 %; Neutrophils Fluid Relative 32 %
[2023-08-29 11:23] LABS: Fungus Smear No Fungi Seen
[2023-08-29 11:26] LABS: Fungus Smear No Fungi Seen
== END 2023-07-31 13:58 | disposition home or self-care (01) ==
PROVIDERS: PCP Physician Assistant Medical; Visit Provider Student in an Organized Health Care Education/Training Program
PROC: 0BJ08ZZ Inspection of Tracheobronchial Tree, Via Natural or Artificial Opening Endoscopic (ICD-10-PCS; CPT 31622; principal; 2023-07-31 10:30)
DX: J84.9 Interstitial pulmonary disease, unspecified (principal); Z99.81 Dependence on supplemental oxygen; E11.9 Type 2 diabetes mellitus without complications; I10 Essential (primary) hypertension; E78.1 Pure hyperglyceridemia; R59.0 Localized enlarged lymph nodes; Z79.84 Long term (current) use of oral hypoglycemic drugs; Z79.899 Other long term (current) drug therapy
CPT/HCPCS: 31628; 31624; 31623; 31632; 76000; 80162; 87070; 87102; 87116; 87205; 87206; 71045; 88104; J1100; J2405

== ENCOUNTER 2023-08-04 04:17 | Outpatient (CLI) | payer MEDICARE, OTHER, SELFPAY ==
[2023-08-04] MEDS: Levalbuterol HFA 15 GM INH 4 PUFF IH (11:08)
[2023-08-04] MEDS: Inhaler, Assist Device 1 EACH MC (11:08)
--- NOTE | 2023-08-07 14:01 | W.PFT ---
Date of service: 08/04/23 Time of Service: 10:06 Pulmonary Function Test Result Indications: ILD Interpretation Spirometry: There is restrictive appearing spirometry. No significant bronchodilator response. Lung Volumes: There is moderate restrictive lung disease Diffusion Capacity: Reduced diffusion Airway Pressure: Normal airways resistance Impression There is moderate restrictive lung disease with a proportionally decreased DLCO indicative of ILD. Clinical Correlation therefore is recommended.
== END 2023-08-04 04:18 | disposition home or self-care (01) ==
LOC: RT 04:17
PROVIDERS: PCP Physician Assistant Medical; Visit Provider Student in an Organized Health Care Education/Training Program
DX: J84.9 Interstitial pulmonary disease, unspecified (principal)
CPT/HCPCS: 94060; 94726; 94729

== ENCOUNTER → 2023-09-07 10:24 | Outpatient (BNVA) | payer MEDICARE, OTHER, SELFPAY | PROVIDERS: PCP Physician Assistant Medical; Referring Provider Physician Assistant Medical; Visit Provider Student in an Organized Health Care Education/Training Program | DX: J84.9 Interstitial pulmonary disease, unspecified (principal); R59.0 Localized enlarged lymph nodes; Z23 Encounter for immunization | CPT/HCPCS: 90694; 94618; 99214; G0008 ==

== ENCOUNTER → 2023-10-09 03:19 | Outpatient (CLI) | payer MEDICARE, OTHER, SELFPAY ==
--- NOTE | 2023-10-09 07:15 | DI.CT_ITS ---
Exam(s) CT CHEST WO EXAM: CT CHEST WO CLINICAL HISTORY: assess improvement in interstitial lung disease,j84.9. TECHNIQUE: Multi planar reconstructions were performed. CONTRAST MATERIAL: None COMPARISON: CR XR CHEST 2V PA LATERAL from 06/19/2023 CR XR CHEST 2V PA LATERAL from 07/13/[address] CHEST W from 07/13/2023 CR XR PORTABLE CHEST AP from 07/31/2023 FINDINGS: CHEST: LUNGS: Compared to the prior chest CT scans of 06/19/2023 and 07/13/2023 there is no significant impr ovement in the previously described extensive bilateral lung infiltrates. The infiltrates in the low er lobe basal segments are associated with generalized bronchiectasis. There are no pleural effusion s. No secretions evident in the trachea and mainstem bronchi. MEDIASTINUM: There is no obvious hilar nor anterior mediastinal adenopathy. Slightly increased subcar inal lymph nodes are unchanged.No obvious axillary nor supraclavicular adenopathy. Visualized thyroi d appears unremarkable. CARDIAC: Heart size is normal. There is no pericardial effusion.Caliber of the thoracic aorta is wit hin normal limits. VISUALIZED UPPER ABDOMEN:No adrenal masses. No splenomegaly. Liver size appears prominent. No obvi ous gallstones. OSSEOUS: No significant osseous lesions.No fractures.. IMPRESSION: 1. Compared to prior CT scan of 07/13/2023 there is no obvious significant improvement in the extensi ve bilateral pulmonary infiltrates. There is an element of bronchiectasis associated with the infilt rates in both lower lobes. There are no pleural effusions. 2. No new intrathoracic adenopathy evident. RADIATION DOSE DELIVERED: Total DLP DATA REPOSITORY: All CT scans at this facility are submitted to the National Radiology Data Registry (NRDR) Dose Index Registry (DIR) with the [employer] (ACR). RADIATION OPTIMIZATION: All CT scans at this facility use at least one of these dose optimization te chniques: automated exposure control; mA and/or kV adjustment per patient size (includes targeted exa ms where dose is matched to clinical indication); or iterative reconstruction.
== END ==
PROVIDERS: PCP Physician Assistant Medical; Visit Provider Student in an Organized Health Care Education/Training Program
DX: J84.9 Interstitial pulmonary disease, unspecified (principal)
CPT/HCPCS: 71250

== ENCOUNTER → 2024-01-08 12:35 | Outpatient (BNVA) | payer MEDICARE, OTHER, SELFPAY | PROVIDERS: PCP Physician Assistant Medical; Referring Provider Physician Assistant Medical; Visit Provider Physician Assistant Surgical | DX: J84.9 Interstitial pulmonary disease, unspecified (principal); R59.0 Localized enlarged lymph nodes | CPT/HCPCS: 99214 ==

== ENCOUNTER 2024-01-26 21:15 | Outpatient (REF) | payer MEDICARE, OTHER, SELFPAY ==
[2024-01-26 21:08] LABS: Source Nasal/Nares
[2024-01-26 21:51] LABS: COVID-19 PCR Negative (Negative)
== END 2024-01-26 21:16 | disposition home or self-care (01) ==
LOC: LBN 21:15
PROVIDERS: PCP Physician Assistant Medical; Visit Provider Physician Assistant Medical
DX: J06.9 Acute upper respiratory infection, unspecified (principal); Z11.52 Encounter for screening for COVID-19
CPT/HCPCS: 87635

== ENCOUNTER 2024-02-19 21:54 | Outpatient (REF) | payer MEDICARE, OTHER, SELFPAY ==
[2024-02-19 23:31] LABS: Abs Immature Grans 0.05 10^3/uL (0.0-0.06); Absolute Basophil Count 0.09 10^3/uL (0.0-0.2); Absolute Eosinophil Count 0.12 10^3/uL (0.0-0.7); Absolute Neutrophil Count 9.17 10^3/uL (1.2-6.7); Basophils % 0.7; HCT 53.6 % (40.0-50.0); Immature Grans % 0.4; Lymphocytes % 15.6; MCH 28.3 pg (27.0-33.0); MCHC 33.6 % (32.0-36.0); MCV 84 fL (80-95); MPV 10.2 fL (8.0-11.0); Monocytes % 7.1; Neutrophils % 75.2; Platelet Count 273 10^3/uL (130-400); RBC 6.35 10^6/uL (4.36-5.78); RDW 15.5 % (11.8-14.1); RDW-SD 46.6 fL; WBC 12.19 10^3/uL (4.4-10.8)
[2024-02-19 23:32] LABS: Absolute Monocyte Count 0.87 10^3/uL (0.1-0.8)
[2024-02-19 23:48] LABS: ALT 24 U/L (16-63); AST 14 U/L (15-37); Albumin 3.5 g/dL (3.4-5.0); Alkaline Phosphatase 63 U/L (46-116); Anion Gap 9.2 mmol/L (3-11); BUN 21 mg/dL (7-18); Bilirubin, Total 0.5 mg/dL (0.2-1.0); CO2 27.8 mmol/L (21.0-32.0); CREATININE 1.1 mg/dL (0.70-1.30); Calcium 9.4 mg/dL (8.5-10.1); Chloride 103 mmol/L (98-107); Estimated GFR 72.22 (mL/min/1.73m2); Glucose 141 mg/dL (74-106); Potassium 4.3 mmol/L (3.5-5.1); Sodium 140 mmol/L (136-145); Total Protein 7.4 g/dL (6.4-8.2)
== END 2024-02-19 21:55 | disposition home or self-care (01) ==
LOC: LBN 21:54
PROVIDERS: PCP Physician Assistant Medical; Visit Provider Nurse Practitioner Family
DX: R22.1 Localized swelling, mass and lump, neck (principal)
CPT/HCPCS: 80053; 85025

== ENCOUNTER → 2024-02-22 03:54 | Outpatient (CLI) | payer MEDICARE, OTHER, SELFPAY ==
[2024-02-22] MEDS: Omnipaque 350 MG/ML 100 ML BTL IJ (14:45)
[2024-02-22] MEDS: Normal Saline - Diluent 50 ML VIAL IJ (14:45)
--- NOTE | 2024-02-22 15:00 | DI.CT_ITS ---
Exam(s) CT NECK W EXAM: CT NECK W CLINICAL HISTORY: RT SUBMANDIBULAR NECK SWELLING,NOW MASS,PAINLESS,ENLARGING,R22.1. TECHNIQUE: Imaging Protocol: Axial computed tomography images with coronal and sagittal reformatted images were created and reviewed. CONTRAST MATERIAL: Intravenous: Omnipaque 350 Contrast volume:100mL COMPARISON: CT CT CHEST W from 07/13/[address] CHEST WO from 10/09/2023 FINDINGS: The examination is limited due to patient motion artifact. Orbits and orbital soft tissues: Within normal limits. Visualized paranasal sinuses: There is a small mucous retention cyst or polyp in the floor of the le ft maxillary sinus. The remaining visualized paranasal sinuses and mastoid air cells are clear. Nasopharynx: Within normal limits. Oropharynx: Within normal limits. Hypopharynx: Within normal limits. Larynx: Within normal limits. Retropharyngeal space: Within normal limits. Parotids/submandibular: Within normal limits. Thyroid gland: There is a 4 mm hypodense nodule in the right lobe of the thyroid gland. There is a 1.6 x 1.3 cm hypodense nodule in the lower pole of the left thyroid gland. Nonemergent thyroid ultra sound is recommended for further evaluation. Lymphadenopathy: There is a 3.9 transverse by 4.2 AP by 4.2 craniocaudad cm mass in the right neck a t the level of the angle of the mandible and lateral to the carotid bifurcation. It is solid with an area of decreased attenuation superiorly which may represent necrosis. It lies anterior to and slig htly medial to the right sternocleidomastoid muscle and may be infiltrating the muscle. It appears s eparate from both the submandibular and parotid glands. Trachea: Within normal limits. Lung apices: There are dependent atelectatic changes in the lungs. Bones: Within normal limits for the patient's age. Carotids/Jugular: The adjacent vessels are anteriorly and medially displaced by the right neck mass. Soft tissues: Please see the above section under lymphadenopathy. IMPRESSION: 3.9 x 4.2 x 4.2 cm mass in the right neck as described above. Neoplasm/metastatic disease versus von nopathy is suspected. Tissue sampling should be considered for further evaluation. Unexpected findings RADIATION DOSE DELIVERED: 498.92mGy.cm Total DLP 498.92mGy.cm Total DLP DATA REPOSITORY: All CT scans at this facility are submitted to the National Radiology Data Registry (NRDR) Dose Index Registry (DIR) with the [employer] (ACR). RADIATION OPTIMIZATION: All CT scans at this facility use at least one of these dose optimization te chniques: automated exposure control; mA and/or kV adjustment per patient size (includes targeted exa ms where dose is matched to clinical indication); or iterative reconstruction.
== END ==
PROVIDERS: PCP Physician Assistant Medical; Visit Provider Nurse Practitioner Family
DX: R22.1 Localized swelling, mass and lump, neck (principal)
CPT/HCPCS: 70491; J3490

== ENCOUNTER 2024-02-26 15:26 | Outpatient (REF) | payer MEDICARE, OTHER, SELFPAY ==
--- NOTE | 2024-02-26 15:30 | PAPNONF_PTH ---
PATIENT: Junior Cruz LOC: [facility] U#:[id number] AGE/SX: 68/M ROOM: RE02/26/[address]: Dianna Esparza : 1955 BED: DIS: 02/26/2024 SPEC #: [id number] RECD: 02/26/24 18:24 STATUS: ALBER RETe #: [id number] CARLA: 02/26/24 15:[address]: Dianna Esparza DEPT: [facility] Cytology RECD BY: Yari Killian ENTERED: 02/26/24 18:25 SP TYPE: [place] [facility] DR: Lashae Britton MD Tissues: 1 - BODY FLUID CYTO-FINE NEEDLE ASPIRATE-[facility] Procedures: IMMUNOPEROXIDASE STAIN BODY FLUID CYTO-FINE NEEDLE ASPIRATE-[facility] Comments: [id number] (REFRIGERATED)
== END 2024-02-26 15:27 | disposition home or self-care (01) ==
LOC: LBN 15:26
PROVIDERS: PCP Physician Assistant Medical; Visit Provider Registered Nurse Maternal Newborn
DX: R22.1 Localized swelling, mass and lump, neck (principal); C44.42 Squamous cell carcinoma of skin of scalp and neck
CPT/HCPCS: 88104; 88361

== ENCOUNTER 2024-05-17 02:08 | Outpatient (CLI) | payer MEDICARE, OTHER, SELFPAY ==
[2024-05-17 13:50] LABS: Abs Immature Grans 0.06 10^3/uL (0.0-0.06); Absolute Basophil Count 0.07 10^3/uL (0.0-0.2); Absolute Lymphocyte Count 2.47 10^3/uL (1.2-3.4); Absolute Monocyte Count 0.77 10^3/uL (0.1-0.8); Absolute Neutrophil Count 10.49 10^3/uL (1.2-6.7); Basophils % 0.5 %; Eosinophils % 2.5 %; HCT 49.8 % (40.0-50.0); HGB 16.3 g/dL (13.5-17.5); Immature Grans % 0.4 %; Lymphocytes % 17.4 %; MCH 29.2 pg (27.0-33.0); MCHC 32.7 % (32.0-36.0); MCV 89 fL (80-95); MPV 9.7 fL (8.0-11.0); Monocytes % 5.4 %; Neutrophils % 73.8 %; Platelet Count 198 10^3/uL (130-400); RBC 5.58 10^6/uL (4.36-5.78); RDW 14.2 % (11.8-14.1); RDW-SD 46.3 fL; WBC 14.21 10^3/uL (4.4-10.8)
[2024-05-17 13:51] LABS: Absolute Eosinophil Count 0.36 10^3/uL (0.0-0.7)
[2024-05-17 14:43] LABS: ALT 20 U/L (16-63); AST 14 U/L (15-37); Albumin 3.5 g/dL (3.4-5.0); Alkaline Phosphatase 70 U/L (46-116); Anion Gap 9.6 mmol/L (3-11); BUN 14 mg/dL (7-18); Bilirubin, Total 0.66 mg/dL (0.2-1.0); CO2 27.4 mmol/L (21.0-32.0); Calcium 9.1 mg/dL (8.5-10.1); Chloride 103 mmol/L (98-107); Estimated GFR 80.97 (mL/min/1.73m2); Glucose 197 mg/dL (74-106); Magnesium 1.8 mg/dL (1.8-2.4); Potassium 3.9 mmol/L (3.5-5.1); Sodium 140 mmol/L (136-145); Total Protein 7.6 g/dL (6.4-8.2)
== END 2024-05-17 02:09 | disposition home or self-care (01) ==
LOC: LBO 02:08
PROVIDERS: PCP Physician Assistant Medical; Visit Provider Nurse Practitioner
DX: C76.0 Malignant neoplasm of head, face and neck (principal)
CPT/HCPCS: 36415; 80053; 83735; 85025

== ENCOUNTER 2024-06-03 09:24 | Outpatient (RCR) | payer MEDICARE, OTHER, SELFPAY ==
[2024-06-03 09:31] LABS: Abs Immature Grans 0.08 10^3/uL (0.0-0.06); Absolute Basophil Count 0.06 10^3/uL (0.0-0.2); Absolute Eosinophil Count 0.14 10^3/uL (0.0-0.7); Absolute Lymphocyte Count 1.66 10^3/uL (1.2-3.4); Absolute Neutrophil Count 12.38 10^3/uL (1.2-6.7); Basophils % 0.4 %; Eosinophils % 0.9 %; HCT 50.7 % (40.0-50.0); HGB 16.8 g/dL (13.5-17.5); Immature Grans % 0.5 %; Lymphocytes % 10.7 %; MCH 29.6 pg (27.0-33.0); MCHC 33.1 % (32.0-36.0); MCV 89 fL (80-95); Monocytes % 7.7 %; Neutrophils % 79.8 %; Platelet Count 204 10^3/uL (130-400); RBC 5.67 10^6/uL (4.36-5.78); RDW 13.4 % (11.8-14.1); RDW-SD 43.8 fL; WBC 15.52 10^3/uL (4.4-10.8)
[2024-06-03] MEDS: Normal Saline Flush 10 ML SYR IVP (09:36)
[2024-06-03 09:46] LABS: ALT 27 U/L (16-63); AST 12 U/L (15-37); Albumin 3.3 g/dL (3.4-5.0); Alkaline Phosphatase 68 U/L (46-116); Anion Gap 7.8 mmol/L (3-11); BUN 20 mg/dL (7-18); Bilirubin, Total 1.27 mg/dL (0.2-1.0); CO2 33.2 mmol/L (21.0-32.0); Calcium 9.1 mg/dL (8.5-10.1); Chloride 100 mmol/L (98-107); Estimated GFR 80.47 (mL/min/1.73m2); Glucose 156 mg/dL (74-106); Magnesium 1.4 mg/dL (1.8-2.4); Potassium 3.7 mmol/L (3.5-5.1); Sodium 141 mmol/L (136-145); Total Protein 7.1 g/dL (6.4-8.2)
== END 2024-06-05 23:59 | disposition home or self-care (01) ==
LOC: INF 09:24
PROVIDERS: Nurse Practitioner; PCP Physician Assistant Medical; Visit Provider Internal Medicine Rheumatology
DX: C76.0 Malignant neoplasm of head, face and neck (principal); Z45.2 Encounter for adjustment and management of vascular access device
CPT/HCPCS: 36591; 80053; 83735; 85025

== ENCOUNTER 2024-07-01 02:42 | Outpatient (RCR) | payer MEDICARE, OTHER, SELFPAY ==
[2024-06-10 09:01] LABS: Abs Immature Grans 0.06 10^3/uL (0.0-0.06); Absolute Basophil Count 0.06 10^3/uL (0.0-0.2); Absolute Eosinophil Count 0.12 10^3/uL (0.0-0.7); Absolute Monocyte Count 0.84 10^3/uL (0.1-0.8); Basophils % 0.5 %; HCT 47.3 % (40.0-50.0); HGB 15.4 g/dL (13.5-17.5); Immature Grans % 0.5 %; Lymphocytes % 10.5 %; MCH 29.7 pg (27.0-33.0); MCHC 32.6 % (32.0-36.0); MCV 91 fL (80-95); MPV 9.4 fL (8.0-11.0); Monocytes % 6.8 %; Neutrophils % 80.7 %; Platelet Count 167 10^3/uL (130-400); RBC 5.19 10^6/uL (4.36-5.78); RDW 13.2 % (11.8-14.1); RDW-SD 44.4 fL; WBC 12.42 10^3/uL (4.4-10.8)
[2024-06-10 09:06] LABS: Absolute Neutrophil Count 10.02 10^3/uL (1.2-6.7)
[2024-06-10 09:15] LABS: ALT 23 U/L (16-63); AST 16 U/L (15-37); Alkaline Phosphatase 82 U/L (46-116); Anion Gap 10.2 mmol/L (3-11); BUN 19 mg/dL (7-18); Bilirubin, Total 0.48 mg/dL (0.2-1.0); CO2 29.8 mmol/L (21.0-32.0); CREATININE 1.1 mg/dL (0.70-1.30); Calcium 8.7 mg/dL (8.5-10.1); Chloride 101 mmol/L (98-107); Estimated GFR 71.77 (mL/min/1.73m2); Glucose 233 mg/dL (74-106); Magnesium 1.2 mg/dL (1.8-2.4); Potassium 3.3 mmol/L (3.5-5.1); Sodium 141 mmol/L (136-145); Total Protein 6.5 g/dL (6.4-8.2)
[2024-06-10] MEDS: Normal Saline Flush 10 ML SYR IVP (11:38)
[2024-06-17] MEDS: Normal Saline Flush 10 ML SYR IVP (09:27)
[2024-06-17 09:42] LABS: Abs Immature Grans 0.04 10^3/uL (0.0-0.06); Absolute Basophil Count 0.03 10^3/uL (0.0-0.2); Absolute Eosinophil Count 0.06 10^3/uL (0.0-0.7); Absolute Monocyte Count 0.57 10^3/uL (0.1-0.8); Basophils % 0.4 %; Eosinophils % 0.8 %; HCT 44.6 % (40.0-50.0); HGB 14.8 g/dL (13.5-17.5); Immature Grans % 0.5 %; Lymphocytes % 9.3 %; MCH 29.4 pg (27.0-33.0); MCHC 33.2 % (32.0-36.0); MCV 89 fL (80-95); MPV 9.4 fL (8.0-11.0); Monocytes % 7.6 %; Neutrophils % 81.4 %; Platelet Count 163 10^3/uL (130-400); RBC 5.03 10^6/uL (4.36-5.78); RDW 13.3 % (11.8-14.1); RDW-SD 42.8 fL
[2024-06-17 10:02] LABS: ALT 24 U/L (16-63); AST 12 U/L (15-37); Albumin 3.2 g/dL (3.4-5.0); Alkaline Phosphatase 66 U/L (46-116); Anion Gap 5.4 mmol/L (3-11); BUN 21 mg/dL (7-18); Bilirubin, Total 0.75 mg/dL (0.2-1.0); CO2 31.6 mmol/L (21.0-32.0); CREATININE 1.1 mg/dL (0.70-1.30); Calcium 9.1 mg/dL (8.5-10.1); Chloride 104 mmol/L (98-107); Estimated GFR 71.77 (mL/min/1.73m2); Glucose 171 mg/dL (74-106); Magnesium 1.3 mg/dL (1.8-2.4); Potassium 3.8 mmol/L (3.5-5.1); Sodium 141 mmol/L (136-145); Total Protein 6.8 g/dL (6.4-8.2)
[2024-06-24] MEDS: Normal Saline Flush 10 ML SYR IVP (09:02)
[2024-06-24 09:19] LABS: Abs Immature Grans 0.02 10^3/uL (0.0-0.06); Absolute Basophil Count 0.02 10^3/uL (0.0-0.2); Absolute Eosinophil Count 0.06 10^3/uL (0.0-0.7); Absolute Monocyte Count 0.31 10^3/uL (0.1-0.8); Absolute Neutrophil Count 3.65 10^3/uL (1.2-6.7); Basophils % 0.4 %; Eosinophils % 1.3 %; HCT 39.9 % (40.0-50.0); HGB 13.3 g/dL (13.5-17.5); Immature Grans % 0.4 %; MCH 29.2 pg (27.0-33.0); MCHC 33.3 % (32.0-36.0); MCV 88 fL (80-95); MPV 9.4 fL (8.0-11.0); Monocytes % 6.8 %; Neutrophils % 80.1 %; RBC 4.56 10^6/uL (4.36-5.78); RDW 13.4 % (11.8-14.1); RDW-SD 41.7 fL; WBC 4.56 10^3/uL (4.4-10.8)
[2024-06-24 09:32] LABS: ALT 23 U/L (16-63); AST 11 U/L (15-37); Alkaline Phosphatase 58 U/L (46-116); Anion Gap 8.5 mmol/L (3-11); BUN 16 mg/dL (7-18); Bilirubin, Total 0.63 mg/dL (0.2-1.0); CO2 29.5 mmol/L (21.0-32.0); CREATININE 1.1 mg/dL (0.70-1.30); Calcium 9.1 mg/dL (8.5-10.1); Chloride 103 mmol/L (98-107); Diff Comment Diff Reviewed; Estimated GFR 71.77 (mL/min/1.73m2); Glucose 233 mg/dL (74-106); Magnesium 1.1 mg/dL (1.8-2.4); Platelet Count 81 10^3/uL (130-400); Potassium 3.9 mmol/L (3.5-5.1); RBC Morphology Normal; Sodium 141 mmol/L (136-145); Total Protein 6.5 g/dL (6.4-8.2)
[2024-07-01] MEDS: Normal Saline Flush 10 ML SYR IVP (09:06)
[2024-07-01 09:27] LABS: Abs Immature Grans 0.02 10^3/uL (0.0-0.06); Absolute Basophil Count 0.01 10^3/uL (0.0-0.2); Absolute Eosinophil Count 0.02 10^3/uL (0.0-0.7); Absolute Lymphocyte Count 0.48 10^3/uL (1.2-3.4); Absolute Monocyte Count 0.22 10^3/uL (0.1-0.8); Basophils % 0.4 %; Eosinophils % 0.9 %; HCT 35.7 % (40.0-50.0); HGB 12.3 g/dL (13.5-17.5); Immature Grans % 0.9 %; Lymphocytes % 21.3 %; MCH 29.4 pg (27.0-33.0); MCHC 34.5 % (32.0-36.0); MCV 85 fL (80-95); Monocytes % 9.8 %; Neutrophils % 66.7 %; RBC 4.19 10^6/uL (4.36-5.78); RDW 13.9 % (11.8-14.1); RDW-SD 40.9 fL; WBC 2.25 10^3/uL (4.4-10.8)
[2024-07-01 09:36] LABS: Platelet Count 98 10^3/uL (130-400)
[2024-07-01 09:37] LABS: MPV 10.2 fL (8.0-11.0)
[2024-07-01 09:43] LABS: ALT 26 U/L (16-63); AST 14 U/L (15-37); Albumin 3.2 g/dL (3.4-5.0); Alkaline Phosphatase 60 U/L (46-116); Anion Gap 6.2 mmol/L (3-11); BUN 24 mg/dL (7-18); Bilirubin, Total 0.77 mg/dL (0.2-1.0); CO2 29.8 mmol/L (21.0-32.0); CREATININE 1.1 mg/dL (0.70-1.30); Calcium 9.4 mg/dL (8.5-10.1); Chloride 101 mmol/L (98-107); Estimated GFR 71.77 (mL/min/1.73m2); Glucose 176 mg/dL (74-106); Magnesium 1.3 mg/dL (1.8-2.4); Potassium 3.6 mmol/L (3.5-5.1); Sodium 137 mmol/L (136-145); Total Protein 6.8 g/dL (6.4-8.2)
== END 2024-07-06 23:59 | disposition home or self-care (01) ==
LOC: INF 02:42
PROVIDERS: Nurse Practitioner; PCP Physician Assistant Medical; Visit Provider Internal Medicine Rheumatology
DX: C76.0 Malignant neoplasm of head, face and neck (principal)
CPT/HCPCS: 36591; 80053; 83735; 85025

== ENCOUNTER 2024-08-05 02:42 | Outpatient (RCR) | payer MEDICARE, OTHER, SELFPAY ==
[2024-07-09] MEDS: Normal Saline Flush 10 ML SYR IVP (08:47)
[2024-07-09 09:22] LABS: Abs Immature Grans 0.03 10^3/uL (0.0-0.06); Absolute Basophil Count 0.01 10^3/uL (0.0-0.2); Absolute Eosinophil Count 0.01 10^3/uL (0.0-0.7); Absolute Lymphocyte Count 0.44 10^3/uL (1.2-3.4); Absolute Neutrophil Count 1.74 10^3/uL (1.2-6.7); Basophils % 0.4 %; Eosinophils % 0.4 %; HCT 32.9 % (40.0-50.0); HGB 11.1 g/dL (13.5-17.5); Immature Grans % 1.1 %; Lymphocytes % 16.7 %; MCH 29.3 pg (27.0-33.0); MCHC 33.7 % (32.0-36.0); MCV 87 fL (80-95); MPV 9.4 fL (8.0-11.0); Monocytes % 15.2 %; Neutrophils % 66.2 %; Platelet Count 199 10^3/uL (130-400); RBC 3.79 10^6/uL (4.36-5.78); RDW-SD 42.8 fL; WBC 2.63 10^3/uL (4.4-10.8)
[2024-07-09 09:49] LABS: ALT 21 U/L (16-63); AST 15 U/L (15-37); Albumin 3.2 g/dL (3.4-5.0); Alkaline Phosphatase 56 U/L (46-116); Anion Gap 8.4 mmol/L (3-11); BUN 30 mg/dL (7-18); Bilirubin, Total 0.75 mg/dL (0.2-1.0); CO2 29.6 mmol/L (21.0-32.0); Calcium 9.6 mg/dL (8.5-10.1); Chloride 106 mmol/L (98-107); Estimated GFR 80.47 (mL/min/1.73m2); Glucose 163 mg/dL (74-106); Magnesium 1.3 mg/dL (1.8-2.4); Sodium 144 mmol/L (136-145)
[2024-08-05] MEDS: Normal Saline Flush 10 ML SYR IVP (12:58)
[2024-08-05 13:21] LABS: Abs Immature Grans 0.02 10^3/uL (0.0-0.06); Absolute Basophil Count 0.02 10^3/uL (0.0-0.2); Absolute Eosinophil Count 0.08 10^3/uL (0.0-0.7); Absolute Lymphocyte Count 0.93 10^3/uL (1.2-3.4); Absolute Monocyte Count 0.55 10^3/uL (0.1-0.8); Absolute Neutrophil Count 3.75 10^3/uL (1.2-6.7); Basophils % 0.4 %; Eosinophils % 1.5 %; HCT 31.2 % (40.0-50.0); HGB 10.4 g/dL (13.5-17.5); Immature Grans % 0.4 %; Lymphocytes % 17.4 %; MCH 32.6 pg (27.0-33.0); MCHC 33.3 % (32.0-36.0); MCV 98 fL (80-95); MPV 9.8 fL (8.0-11.0); Monocytes % 10.3 %; Platelet Count 134 10^3/uL (130-400); RBC 3.19 10^6/uL (4.36-5.78); WBC 5.35 10^3/uL (4.4-10.8)
[2024-08-05 13:33] LABS: ALT 17 U/L (16-63); AST 13 U/L (15-37); Albumin 3.1 g/dL (3.4-5.0); Alkaline Phosphatase 55 U/L (46-116); Anion Gap 6.3 mmol/L (3-11); BUN 25 mg/dL (7-18); Bilirubin, Total 0.66 mg/dL (0.2-1.0); CO2 29.7 mmol/L (21.0-32.0); Calcium 9.4 mg/dL (8.5-10.1); Chloride 98 mmol/L (98-107); Estimated GFR 80.47 (mL/min/1.73m2); Glucose 184 mg/dL (74-106); Magnesium 1.4 mg/dL (1.8-2.4); Potassium 4.3 mmol/L (3.5-5.1); Sodium 134 mmol/L (136-145); Total Protein 7.1 g/dL (6.4-8.2)
[2024-08-05 13:39] LABS: Anisocytosis 3+; Diff Comment RBC Morph Reviewed
== END 2024-08-05 23:59 | disposition home or self-care (01) ==
LOC: INF 02:42
PROVIDERS: Nurse Practitioner; PCP Physician Assistant Medical; Visit Provider Internal Medicine Rheumatology
DX: C76.0 Malignant neoplasm of head, face and neck (principal)
CPT/HCPCS: 36591; 80053; 83735; 85025

== ENCOUNTER 2024-08-19 02:15 | Outpatient (RCR) | payer MEDICARE, OTHER, SELFPAY ==
[2024-08-19] MEDS: Normal Saline Flush 10 ML SYR IVP (10:53)
[2024-08-19 11:01] LABS: Abs Immature Grans 0.02 10^3/uL (0.0-0.06); Absolute Basophil Count 0.02 10^3/uL (0.0-0.2); Absolute Lymphocyte Count 0.96 10^3/uL (1.2-3.4); Absolute Monocyte Count 0.54 10^3/uL (0.1-0.8); Basophils % 0.4 %; Eosinophils % 1.9 %; HCT 31.9 % (40.0-50.0); HGB 10.7 g/dL (13.5-17.5); Immature Grans % 0.4 %; Lymphocytes % 18.3 %; MCH 33.6 pg (27.0-33.0); MCHC 33.5 % (32.0-36.0); MCV 100 fL (80-95); Monocytes % 10.3 %; Neutrophils % 68.7 %; Platelet Count 181 10^3/uL (130-400); RBC 3.18 10^6/uL (4.36-5.78); RDW 16.4 % (11.8-14.1); RDW-SD 60.9 fL; WBC 5.24 10^3/uL (4.4-10.8)
[2024-08-19 11:17] LABS: ALT 18 U/L (16-63); AST 9 U/L (15-37); Albumin 3.1 g/dL (3.4-5.0); Alkaline Phosphatase 55 U/L (46-116); Anion Gap 6.8 mmol/L (3-11); BUN 22 mg/dL (7-18); Bilirubin, Total 0.46 mg/dL (0.2-1.0); CO2 30.2 mmol/L (21.0-32.0); Calcium 9.4 mg/dL (8.5-10.1); Chloride 102 mmol/L (98-107); Estimated GFR 80.47 (mL/min/1.73m2); Glucose 203 mg/dL (74-106); Magnesium 1.5 mg/dL (1.8-2.4); Potassium 4.1 mmol/L (3.5-5.1); Sodium 139 mmol/L (136-145); Total Protein 6.9 g/dL (6.4-8.2)
== END 2024-09-05 23:59 | disposition home or self-care (01) ==
LOC: INF 02:15
PROVIDERS: Nurse Practitioner; PCP Physician Assistant Medical; Visit Provider Internal Medicine Rheumatology
DX: C76.0 Malignant neoplasm of head, face and neck (principal); Z45.2 Encounter for adjustment and management of vascular access device
CPT/HCPCS: 36591; 80053; 83735; 85025

== ENCOUNTER 2024-09-04 00:54 | Outpatient (CLI) | payer MEDICARE, OTHER, SELFPAY ==
--- NOTE | 2024-09-04 15:14 | DI.RAD_ITS ---
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 CONTRAST MATERIAL: Multiple consistencies of oral barium contrast were administered. COMPARISON: No exams were available for comparison FINDINGS: Note that this is not a dedicated esophagram, distal esophagus not evaluated. There was mild laryngeal penetration with thin liquids. There was significant residue in the vallecu la. IMPRESSION: Mild laryngeal penetration. Speech pathology report to follow. RADIATION DOSE DELIVERED: anthony Jenkins=11.4 mGy
[2024-09-04] MEDS: Barium Sulfate Oral Paste 40% W/V 230 ML TUBE 13 ML PO (15:15)
[2024-09-04] MEDS: Barium Sulfate 700 MG TAB PO (15:15)
[2024-09-04] MEDS: Barium Sulfate 40% W/V 240 ML BTL 50 ML PO (15:16)
[2024-09-04] MEDS: Barium Sulfate 81% w/w for Oral Suspension 148 GM BTL 70 GM PO (15:17)
[2024-09-04] MEDS: Barium Sulfate 40% W/V 1500 CPS 250 ML BTL 50 ML PO (15:18)
--- NOTE | 2024-09-04 16:01 | ST.MBS ---
Date of Service Date of service: 09/04/24 Time of Service: 14:45 Modified Barium Swallow Study Findings: Video fluoroscopic Swallowing Evaluation (VFSE) / Modified Barium Swallow Study (MBSS) Speech Language Pathology Report Patient referred for VFSE/MBSS from Millicent Cheung NP ([facility] [place] Hem/Onc given reduced PO intake after chemo/radiation treatment for head/neck cancer. 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 He did not have a feeding tube placed and while he did not experience significant pain during treatment he did lose a considerable amount of weight due primarily to taste changes and low appetite throughout treatment. He reports recently that some of his taste is starting to return. Throughout treatment he did not demonstrate any notable s/sx aspiration and noted only mild dysphagia secondary primarily to dry mouth. IMPRESSIONS: Swallow safety is mildly impaired; swallow efficiency is impaired. 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 Characterized primarily by reduced epiglottic inversion, reduced tongue base retraction, reduce posterior pharyngeal wall movement, and very mildly reduced laryngeal elevation resulting in trace penetration/aspiration intermittently of thin liquids and significant vallecular>pyriform residue for solids & purees > liquids. ?Patient appears to be at mild risk for potential aspiration PNA and/or pulmonary compromise and mild-moderate risk for malnutrition/dehydration. Diet modification is indicated; non-oral nutrition is not indicated. Swallow prognosis is fair given: Positive prognostic factors: Time since onset, Motivation, Cognitive status, Negative prognostic factors: Relative dose of Chemotherapy and/or radiation treatment, and pending patient/caregiver training in risk management as outlined, including use of trialed compensatory strategies. Patient appears to be a good candidate for behavioral swallow rehabilitation. RECOMMENDATIONS: Diet Texture Recommendation:? IDDSI LEVEL SOLIDS 6-Soft & Bite-Sized Solids LIQUIDS 0-Thin Liquids Please see further details at?[email or web address] MEDICATIONS Whole with 4 - Puree and L head turn Diet texture modification is per patient's preference; please adjust diet textures at patient's discretion & collaboration with care team. Do not alter medications (e.g., cut)? without advice from your MD or pharmacist. Risk Management Strategies:? Behavioral reflux precautions, including upright position during + 90 mins after meals. Small bites, approx [id number] Small sips, approx 10 mL Alternate solids/liquids as able Perform L head turn/chin tuck when swallowing pills or dry/tough solids to prevent it getting stuck in your throat. Control risk factors for aspiration pneumonia via (a) thorough oral hygiene & (b) maintaining physical mobility as tolerated PLAN: Therapy: Recommend subsequent outpatient session with [facility] to review results of today's exam and develop treatment plan as appropriate. May consider the following: Oropharyngeal Exercises to target deficits noted in objective section above, Further Compensatory Strategy Training, Further Training/Education in Risk Management, Follow-up exam: May benefit from repeat VFSE/MBSS after completing lymphedema massage and HEP for oral-pharyngeal strengthening. ----- OBJECTIVE Videofluoroscopic Swallow Evaluation (VFSE/MBSS) was conducted in the lateral and [id number] projection by Speech-Language Pathologist, in collaboration with Radiologist, to evaluate oropharyngeal swallow function. Anatomic view under fluoroscopy: noting edematous epiglottis and lymphedema of front neck PO Barium Contrast Trials Oral barium water-soluble contrast was administered as follows: IDDSI Level 0 Varibar thin liquid (40% w/v) IDDSI Level 2 Varibar nectar thick/mildly thick liquid (40% w/v) IDDSI Level 4 Varibar pudding/pureed/extremely thick (40% w/v) IDDSI Level 7 Regular Solid: 1/2 isadora cracker coated in 3 mL Varibar pudding 13 mm barium tablet taken with Thin Liquids. MBSImP Component Scores: COMPONENT Scale SCORE 1 Lip closure (0-4) 0 Resulted in no labial escape 2 Hold Position (0-3) 0 Maintained a cohesive bolus between tongue to palatal seal 3 Bolus Preparation (0-4) 1 Resulted in slow prolonged chewing/ mashing with complete re-collection 4 Bolus Transport (0-4) 1 Demonstrated delayed initiation of tongue motion 5 Oral Residue (0-4) 2 Was a collection on oral structures 6 Swallow Initiation (0-4) 2 Occurred as bolus head at posterior laryngeal surface of epiglottis 7 Soft Palate Elevation (0-4) 0 Resulted in no bolus between soft palate and the pharyngeal wall 8 Laryngeal Elevation (0-3) 0 Demonstrated complete superior movement of thyroid cartilage with complete approximation of arytenoids to epiglottic petiole 9 Anterior Hyoid Motion (0-2) 1 Demonstrated partial anterior movement 10 Epiglottic Movement (0-2) 1 Resulted in partial inversion 11 Laryngeal Closure (0-2) 1 Was incomplete with narrow a column of air/contrast in laryngeal vestibule 12 Pharyngeal Stripping Wave (0-2) 1 Was present, but diminished 13 Pharyngeal Contraction (0-3) 3 Produced bilateral Bulging 14 PES Opening (0-3) 1 Demonstrated partial distension/ partial duration, with partial obstruction of flow 15 Tongue Base Retraction (0-4) 3 Allowed a wide column of contrast or air between the retracted tongue base and the posterior pharyngeal wall 16 Pharyngeal Residue (0-4) 2 Was a collection of residue within or on pharyngeal structures 17 Esophageal Clearance (0-4) 1 Resulted in esophageal retention Results: COMPONENT Scale SCORE 1 Oral Score (0-18) 6 2 Pharyngeal Score (0-29) 13 3 Esophageal Score (0-4) 1 Penetration-Aspiration Scale: COMPONENT Scale SCORE 1 Thin liquid (1-8) 8 Contrast entered the airway, passed below the vocal folds, and no effort was made to eject. 2 [place] thick (1-8) 1 Contrast did not enter the airway 3 Honey thick (1-8) NA 4 Pudding thick (1-8) 1 Contrast did not enter the airway 5 Cookie (1-8) 1 Contrast did not enter the airway DIGEST: COMPONENT Scale SCORE 1 Thin Max PAS (1-8) 8 Contrast entered the airway, passed below the vocal folds, and no effort was made to eject. 2 [place] Max PAS (1-8) 1 Contrast did not enter the airway 3 Honey Max PAS (1-8) NA 4 Liquid Max PAS (1-8) 8 Maximum PAS Score over all liquid trials 5 Liquid Max Residue (0-3) 0 below 10% 6 Pudding Max PAS (1-8) 1 Contrast did not enter the airway 7 Pudding Max Residue (0-3) 1 10 - 49% 8 Cracker Max PAS (1-8) 1 Contrast did not enter the airway 9 Cracker Max Residue (0-3) 1 10 - 49% 10 Frequency if PAS >= 3 (0-3) 2 Intermittent (under 50% of trials on a single consistency) 11 Amount if PAS >= 5 (0-1) 0 Not gross Results: COMPONENT Scale SCORE 1 SAFETY GRADE (0-4) 2 Safety grade for swallowing based on patterns of aspiration or laryngeal penetration 2 EFFICIENCY GRADE (0-4) 1 Efficiency grade of swallowing based on patterns of pharyngeal residue 3 DIGEST (0-4) 2 Severity grade of pharyngeal dysphagia: 0 - Normal, 1 - Mild, 2 - Moderate, 3 - Severe, 4 - Life threatening 4 Max Exam PAS (1-8) 8 Maximum PAS Score over all bolus trials 5 Max Exam Residue (0-3) 1 Maximum Exam Residue over all bolus trials Trialed Compensatory Strategies & Outcome: Maneuvers Successful(+) Unsuccessful(-) Postures Successful(+) Unsuccessful(-) 3 second Preparatory Set? ?+ Chin Tuck Posture? ? Cough? ? Posterior Head tilt? Reflexive? Cued? Throat Clear? ?+ Head Tilt to? Reflexive? Left? Cued? Right? ? Saliva swallow? ?+ Head Turn/Rotate to? ? Supraglottic Swallow? Left? ?+ Super-supraglottic Swallow? Right? ? Bolus Modifications Successful (+) Unsuccessful (-) Delivery/Alternating Consistencies ? Follow with Liquid Wash + ? Follow with Solid Bolus? Delivery/Via Straw? ? Reduced Volume? ?+ Reduced Rate of Intake? ?+ Increased Viscosity? ? Other:?? ? Thank you for allowing us to take part in this patient's care. Please feel free to contact the [facility] Speech Language Pathology Department with any questions/concerns.
== END 2024-09-04 01:14 ==
LOC: DI 00:54
PROVIDERS: PCP Physician Assistant Medical; Visit Provider Nurse Practitioner
DX: C76.0 Malignant neoplasm of head, face and neck (principal); E11.9 Type 2 diabetes mellitus without complications; Z92.3 Personal history of irradiation; R13.12 Dysphagia, oropharyngeal phase
CPT/HCPCS: 92526; 74221

== ENCOUNTER 2024-09-18 01:38 | Outpatient (RCR) | payer MEDICARE, OTHER, SELFPAY ==
[2024-09-18] MEDS: Normal Saline Flush 10 ML SYR IVP (09:03)
[2024-09-18 09:17] LABS: Abs Immature Grans 0.03 10^3/uL (0.0-0.06); Absolute Basophil Count 0.06 10^3/uL (0.0-0.2); Absolute Eosinophil Count 0.17 10^3/uL (0.0-0.7); Absolute Lymphocyte Count 1.12 10^3/uL (1.2-3.4); Absolute Monocyte Count 0.79 10^3/uL (0.1-0.8); Absolute Neutrophil Count 6.62 10^3/uL (1.2-6.7); Basophils % 0.7 %; Eosinophils % 1.9 %; HCT 37.9 % (40.0-50.0); HGB 12.6 g/dL (13.5-17.5); Immature Grans % 0.3 %; Lymphocytes % 12.7 %; MCH 31.9 pg (27.0-33.0); MCHC 33.2 % (32.0-36.0); MCV 96 fL (80-95); MPV 9.6 fL (8.0-11.0); Neutrophils % 75.4 %; Platelet Count 177 10^3/uL (130-400); RBC 3.95 10^6/uL (4.36-5.78); RDW 12.5 % (11.8-14.1); RDW-SD 43.6 fL; WBC 8.79 10^3/uL (4.4-10.8)
[2024-09-18 09:32] LABS: ALT 11 U/L (16-63); AST 10 U/L (15-37); Albumin 3.2 g/dL (3.4-5.0); Alkaline Phosphatase 54 U/L (46-116); Anion Gap 6.6 mmol/L (3-11); BUN 21 mg/dL (7-18); Bilirubin, Total 0.56 mg/dL (0.2-1.0); CO2 31.4 mmol/L (21.0-32.0); CREATININE 0.9 mg/dL (0.70-1.30); Chloride 104 mmol/L (98-107); Estimated GFR 91.31 (mL/min/1.73m2); Glucose 180 mg/dL (74-106); Magnesium 1.7 mg/dL (1.8-2.4); Potassium 3.8 mmol/L (3.5-5.1); Sodium 142 mmol/L (136-145); Total Protein 7.1 g/dL (6.4-8.2)
== END 2024-10-05 23:59 | disposition home or self-care (01) ==
LOC: INF 01:38
PROVIDERS: Nurse Practitioner; PCP Physician Assistant Medical; Visit Provider Internal Medicine Rheumatology
DX: C76.0 Malignant neoplasm of head, face and neck (principal); Z45.2 Encounter for adjustment and management of vascular access device
CPT/HCPCS: 36591; 80053; 83735; 85025

== ENCOUNTER 2024-09-18 13:18 | Outpatient (REF) | payer MEDICARE, OTHER, SELFPAY ==
[2024-09-18 15:10] LABS: Anion Gap 7.6 mmol/L (3-11); BUN 21 mg/dL (7-18); CO2 29.4 mmol/L (21.0-32.0); CREATININE 0.9 mg/dL (0.70-1.30); Calculated LDL 81 mg/dL (<100); Chloride 102 mmol/L (98-107); Cholesterol 167 mg/dL (<200); Estimated GFR 91.31 (mL/min/1.73m2); Glucose 167 mg/dL (74-106); HDL Cholesterol 41 mg/dL (40-60); Potassium 3.9 mmol/L (3.5-5.1); Sodium 139 mmol/L (136-145); Triglyceride 227 mg/dL (<150)
== END 2024-09-18 13:19 | disposition home or self-care (01) ==
LOC: NCHCN 13:18
PROVIDERS: PCP Physician Assistant Medical; Visit Provider Student in an Organized Health Care Education/Training Program
DX: I10 Essential (primary) hypertension (principal); E11.9 Type 2 diabetes mellitus without complications
CPT/HCPCS: 80048; 80061

== ENCOUNTER → 2024-09-19 11:04 | Outpatient (BNVA) | payer MEDICARE, OTHER, SELFPAY | PROVIDERS: PCP Physician Assistant Medical; Referring Provider Physician Assistant Medical; Visit Provider Physician Assistant Surgical | DX: J84.9 Interstitial pulmonary disease, unspecified (principal); R59.0 Localized enlarged lymph nodes | CPT/HCPCS: 99214 ==

== ENCOUNTER 2024-10-01 02:43 | Outpatient (CLI) | payer MEDICARE, OTHER, SELFPAY ==
[2024-10-01] MEDS: Levalbuterol HFA 15 GM INH 4 PUFF IH (11:17)
[2024-10-01] MEDS: Inhaler, Assist Device 1 EACH MC (11:17)
--- NOTE | 2024-10-07 14:59 | W.PFT ---
Date of service: 10/01/24 Time of Service: 10:02 Pulmonary Function Test Result Indications: ILD Interpretation Spirometry: There is no airflow limitation. No bronchodilator response. Lung Volumes: Moderate restrictive lung disease. Diffusion Capacity: Reduced diffusion Airway Pressure: Normal airways resistance Impression Moderate restrictive lung disease with a reduced diffusion Clinical Correlation therefore is recommended.
== END 2024-10-01 02:44 | disposition home or self-care (01) ==
LOC: RT 02:43
PROVIDERS: PCP Physician Assistant Medical; Visit Provider Physician Assistant Surgical
DX: J84.9 Interstitial pulmonary disease, unspecified (principal)
CPT/HCPCS: 94060; 94726; 94729

== ENCOUNTER 2024-11-28 21:23 | Outpatient (REF) | payer MEDICARE, OTHER, SELFPAY ==
[2024-11-28 22:13] LABS: Epithelial Cells Negative HPF (Negative); WBC 0-2 HPF (0-5)
[2024-11-28 22:14] LABS: Bacteria Rare HPF (Negative); C & S Indicated? C&S Done As Ordered; Casts Negative LPF (Negative); Crystals Negative HPF (Negative); Mucus Negative (Negative)
[2024-11-28 22:21] LABS: Abs Immature Grans 0.05 10^3/uL (0.0-0.06); Absolute Basophil Count 0.04 10^3/uL (0.0-0.2); Absolute Eosinophil Count 0.17 10^3/uL (0.0-0.7); Absolute Lymphocyte Count 0.73 10^3/uL (1.2-3.4); Absolute Monocyte Count 0.99 10^3/uL (0.1-0.8); Absolute Neutrophil Count 6.69 10^3/uL (1.2-6.7); Basophils % 0.5 %; HCT 39.5 % (40.0-50.0); HGB 12.8 g/dL (13.5-17.5); Immature Grans % 0.6 %; Lymphocytes % 8.4 %; MCH 28.5 pg (27.0-33.0); MCHC 32.4 % (32.0-36.0); MCV 88 fL (80-95); MPV 9.9 fL (8.0-11.0); Monocytes % 11.4 %; Neutrophils % 77.1 %; Platelet Count 273 10^3/uL (130-400); RBC 4.49 10^6/uL (4.36-5.78); RDW 13.8 % (11.8-14.1); RDW-SD 44.2 fL; WBC 8.67 10^3/uL (4.4-10.8)
[2024-11-28 22:35] LABS: ALT 26 U/L (16-63); AST 18 U/L (15-37); Albumin 3.3 g/dL (3.4-5.0); Alkaline Phosphatase 78 U/L (46-116); Anion Gap 7.2 mmol/L (3-11); BUN 19 mg/dL (7-18); CO2 31.8 mmol/L (21.0-32.0); CREATININE 0.9 mg/dL (0.70-1.30); Calcium 9.4 mg/dL (8.5-10.1); Chloride 96 mmol/L (98-107); Estimated GFR 91.31 (mL/min/1.73m2); Glucose 133 mg/dL (74-106); Potassium 4.2 mmol/L (3.5-5.1); Sodium 135 mmol/L (136-145); Total Protein 7.6 g/dL (6.4-8.2)
== END 2024-11-28 21:24 | disposition home or self-care (01) ==
LOC: LBN 21:23
PROVIDERS: PCP Physician Assistant Medical; Visit Provider Student in an Organized Health Care Education/Training Program
DX: R31.9 Hematuria, unspecified (principal); R93.41 Abnormal radiologic findings on diagnostic imaging of renal pelvis, ureter, or bladder
CPT/HCPCS: 80053; 81015; 84154; 85025; 87086

== ENCOUNTER 2024-11-29 11:24 | Outpatient (CLI) | payer MEDICARE, OTHER, SELFPAY ==
--- NOTE | 2024-11-29 | DI.CT_ITS ---
Exam(s) CT ABDOMEN PELVIS WO EXAM: CT ABDOMEN PELVIS WO CLINICAL HISTORY: BLOOD IN URINE, R31.9. TECHNIQUE: Imaging Protocol: Axial computed tomography images with coronal and sagittal reformatted images were created and reviewed CONTRAST MATERIAL: Intravenous: none Oral: None COMPARISON: CT CT CHEST PE CTA from 06/19/[address] CHEST WO from 10/09/2023 FINDINGS: VISUALIZED LUNG BASES: Bronchiectasis noted in both lower lobes as well as ground-glass infiltrates b oth lower lobes. However, appearance has improved when compared to chest CT scan of June 2023 and October 2023.. ABDOMEN: There is no ascites. LIVER: There are no obvious focal hepatic lesions evident of this noninfused study. GALLBLADDER/BILIARY: No obvious gallbladder pathology. CBD is not dilated. PANCREAS: No evidence of pancreatic mass nor dilatation of the pancreatic duct. SPLEEN: Spleen size upper normal. No significant splenic lesions. ADRENALS: There are no significant adrenal masses. KIDNEYS:Right kidney unremarkable. There is a 2 millimeter nonobstructive calculus in the upper pole calyx of the left kidney. There is a small hemorrhagic cysts also noted in the upper pole of the le ft kidney measuring 0.5 cm. No ominous solid renal masses. No hydronephrosis.. ABDOMINAL AORTA: Abdominal aorta is not enlarged. LYMPH NODES: There is no retroperitoneal nor paraaortic adenopathy. ABDOMINAL WALL: There is a fat only containing left inguinal hernia. GI: There is no evidence of bowel obstruction, free air, nor abscess. PELVIS: LYMPH NODES: There is no intrapelvic nor inguinal adenopathy. GI: No evidence of appendicitis.There is sigmoid diverticuli without evidence of acute diverticulitis . URINARY BLADDER: The urinary bladder wall is diffusely thickened. Pelvic ureters are not dilated. REPRODUCTIVE: Prostate gland is enlarged, measuring 5 cm wide. Appears lobulated and difficult to di fferentiate between this and bladder mass. OSSEOUS: No significant osseous lesions. No fractures. IMPRESSION: 1. There is a nonobstructive solitary 2 millimeter calculus in the upper pole calyx of the left kidne y. Small 5 mm nodule in the left kidney which is probably hemorrhagic cyst. 2. There is diffuse thickening of the urinary bladder wall. Also thickening of the bladder wall at t he level the enlarged prostate. This is a noninfused study and is difficult to determine the differe nce between the enlarged and slightly lobulated prostate impinging upon the bladder versus possible b ladder mass. Recommend urology consultation. RADIATION DOSE DELIVERED: 444.27mGy.cm Total DLP DATA REPOSITORY: All CT scans at this facility are submitted to the National Radiology Data Registry (NRDR) Dose Index Registry (DIR) with the [employer] (ACR). RADIATION OPTIMIZATION: All CT scans at this facility use at least one of these dose optimization te chniques: automated exposure control; mA and/or kV adjustment per patient size (includes targeted exa ms where dose is matched to clinical indication); or iterative reconstruction.
== END 2024-11-29 11:44 ==
LOC: DI 11:30
PROVIDERS: PCP Physician Assistant Medical; Visit Provider Student in an Organized Health Care Education/Training Program
DX: N20.0 Calculus of kidney (principal)
CPT/HCPCS: 74176

== ENCOUNTER 2024-12-09 14:25 | Outpatient (CLI) | payer MEDICARE, OTHER, SELFPAY ==
[2024-12-09 13:06] LABS: Abs Immature Grans 0.04 10^3/uL (0.0-0.06); Absolute Basophil Count 0.03 10^3/uL (0.0-0.2); Absolute Eosinophil Count 0.08 10^3/uL (0.0-0.7); Absolute Lymphocyte Count 0.59 10^3/uL (1.2-3.4); Absolute Monocyte Count 0.77 10^3/uL (0.1-0.8); Absolute Neutrophil Count 6.55 10^3/uL (1.2-6.7); Basophils % 0.4 %; HCT 40.3 % (40.0-50.0); HGB 12.9 g/dL (13.5-17.5); Immature Grans % 0.5 %; Lymphocytes % 7.3 %; MCH 27.7 pg (27.0-33.0); MCV 87 fL (80-95); MPV 8.7 fL (8.0-11.0); Monocytes % 9.6 %; Neutrophils % 81.2 %; Platelet Count 305 10^3/uL (130-400); RBC 4.66 10^6/uL (4.36-5.78); RDW 14.4 % (11.8-14.1); RDW-SD 45.1 fL; WBC 8.06 10^3/uL (4.4-10.8)
[2024-12-09 13:15] LABS: Bilirubin Negative (Negative); Blood Negative (Negative); Clarity Clear (Clear); Glucose >=1000 mg/dL (Negative); Ketones Negative (Negative); Leukocyte Esterase Negative (Negative); Nitrite Negative (Negative); Urobilinogen 0.2 mg/dL (Up to 0.2)
[2024-12-09 13:22] LABS: Bacteria Rare HPF (Negative); C & S Indicated? C&S Done As Ordered; Casts Negative LPF (Negative); Crystals Negative HPF (Negative); Epithelial Cells Rare HPF (Negative); Mucus Negative (Negative); RBC 0-2 HPF (0-2); WBC 0-2 HPF (0-5)
[2024-12-09 13:44] LABS: ALT 31 U/L (16-63); AST 18 U/L (15-37); Albumin 2.9 g/dL (3.4-5.0); Alkaline Phosphatase 78 U/L (46-116); Anion Gap 7.5 mmol/L (3-11); BUN 30 mg/dL (7-18); Bilirubin, Total 0.73 mg/dL (0.2-1.0); CO2 30.5 mmol/L (21.0-32.0); CREATININE 1.1 mg/dL (0.70-1.30); Calcium 10.4 mg/dL (8.5-10.1); Chloride 98 mmol/L (98-107); Estimated GFR 71.77 (mL/min/1.73m2); Glucose 191 mg/dL (74-106); Potassium 4.6 mmol/L (3.5-5.1); Sodium 136 mmol/L (136-145); Total Protein 8.1 g/dL (6.4-8.2)
== END 2024-12-09 14:26 | disposition home or self-care (01) ==
LOC: LBO 14:26
PROVIDERS: PCP Student in an Organized Health Care Education/Training Program; Visit Provider Student in an Organized Health Care Education/Training Program
DX: R31.9 Hematuria, unspecified (principal); R93.41 Abnormal radiologic findings on diagnostic imaging of renal pelvis, ureter, or bladder
CPT/HCPCS: 36415; 80053; 81003; 81015; 84154; 85025; 87086

== ENCOUNTER → 2024-12-17 12:58 | Outpatient (BNVA) | payer MEDICARE, OTHER, SELFPAY | PROVIDERS: PCP Student in an Organized Health Care Education/Training Program; Referring Provider Student in an Organized Health Care Education/Training Program; Visit Provider Nurse Practitioner Gerontology | DX: N40.1 Benign prostatic hyperplasia with lower urinary tract symptoms; N13.8 Other obstructive and reflux uropathy; R63.4 Abnormal weight loss; N32.89 Other specified disorders of bladder | CPT/HCPCS: 51798; 81003; 99215 ==

== ENCOUNTER 2024-12-25 02:48 | Outpatient (CLI) | payer MEDICARE, OTHER, SELFPAY ==
--- NOTE | 2025-02-20 14:20 | W.NUTRFU ---
Date of service: 01/22/25 Time of Service: 13:00 Nutrition Note NOTE: Junior in for nutrition visit regarding diabetes/glucose mgt. Junior states he does not check glucose at home - doesn't keep track of his numbers too well. Takes empagliflozin at home 25mg per day. He states he is on the see food diet trying to keep up his nutrition and weight d/t tx of cancer of head and neck. He is not a picky eater, eats breakfast daily, has decreased soda intake and recently also stopped drinking juice regularly.Also started some increased activity. Applauded these changes/habits. Assessed breakfast (usually crm of wheat) as low protein and lower fiber and we discussed goal of choosing starches that have a more fiber in them (as tolerated with any changes in chewing/swallowing he may encounter) and pair with protein sources -should aim to have protein at meals and snacks. I educated Junior on added sugar component of diet and we looked at tracking and trying to manipulate habits so <20g added sugar most days. Also suggested a good minimum of 80g protein per day and suggested sources, along with whey protein supplement to help bolster his intake. Encouraged Junior to check his glucose at least fasting each morning but more is helpful to see if food choices/habits are helping. OFfered follow up whenever Junior would like - gave him the handout we reviewed to take home. Time Spent in Nutritional Counseling and Treatment: 25 min
== END 2024-12-25 02:49 | disposition home or self-care (01) ==
LOC: DS 02:48
PROVIDERS: PCP Student in an Organized Health Care Education/Training Program; Visit Provider Dietitian, Registered
DX: E11.9 Type 2 diabetes mellitus without complications (principal)
CPT/HCPCS: 00123; 97802

== ENCOUNTER 2025-01-08 20:35 | Outpatient (REF) | payer MEDICARE, OTHER, SELFPAY ==
[2025-01-09 10:20] LABS: Measles IgG Antibody Positive (See Note)
== END 2025-01-08 20:36 | disposition home or self-care (01) ==
LOC: NCHCN 20:35
PROVIDERS: PCP Student in an Organized Health Care Education/Training Program; Visit Provider Student in an Organized Health Care Education/Training Program
DX: Z78.9 Other specified health status (principal)
CPT/HCPCS: 86765

== ENCOUNTER → 2025-03-05 13:22 | Outpatient (BNVA) | payer MEDICARE, OTHER, SELFPAY | PROVIDERS: PCP Student in an Organized Health Care Education/Training Program; Referring Provider Student in an Organized Health Care Education/Training Program; Visit Provider Nurse Practitioner Gerontology | DX: R63.4 Abnormal weight loss (principal); N40.1 Benign prostatic hyperplasia with lower urinary tract symptoms; N13.8 Other obstructive and reflux uropathy; N32.89 Other specified disorders of bladder; R39.9 Unspecified symptoms and signs involving the genitourinary system; E11.9 Type 2 diabetes mellitus without complications; Z77.098 Contact with and (suspected) exposure to other hazardous, chiefly nonmedicinal, chemicals | CPT/HCPCS: 51798; 81003; 99214 ==

== ENCOUNTER → 2025-03-18 12:57 | Outpatient (BNVA) | payer MEDICARE, OTHER, SELFPAY | PROVIDERS: PCP Student in an Organized Health Care Education/Training Program; Referring Provider Physician Assistant Medical; Visit Provider Physician Assistant Surgical | DX: J84.9 Interstitial pulmonary disease, unspecified (principal); R59.0 Localized enlarged lymph nodes | CPT/HCPCS: 99214 ==

== ENCOUNTER → 2025-07-14 13:32 | Outpatient (BNVA) | payer MEDICARE, OTHER, SELFPAY | PROVIDERS: PCP Student in an Organized Health Care Education/Training Program; Referring Provider Student in an Organized Health Care Education/Training Program; Visit Provider Physician Assistant Surgical | DX: J84.9 Interstitial pulmonary disease, unspecified (principal) | CPT/HCPCS: 99214 ==

== ENCOUNTER 2025-07-21 01:53 | Outpatient (CLI) | payer MEDICARE, OTHER, SELFPAY ==
[2025-07-21 12:34] LABS: Abs Immature Grans 0.04 10^3/uL (0.0-0.06); HCT 46.7 % (40.0-50.0); HGB 15.4 g/dL (13.5-17.5); Immature Grans % 0.4 %; MCH 28.1 pg (27.0-33.0); MCHC 33.0 % (32.0-36.0); MCV 85 fL (80-95); MPV 9.3 fL (8.0-11.0); Platelet Count 156 10^3/uL (130-400); RBC 5.48 10^6/uL (4.36-5.78); RDW 14.7 % (11.8-14.1); RDW-SD 45.6 fL; WBC 9.70 10^3/uL (4.4-10.8)
[2025-07-21 13:09] LABS: ALT 20 U/L (16-63); AST 12 U/L (15-37); Albumin 3.4 g/dL (3.4-5.0); Alkaline Phosphatase 68 U/L (46-116); Anion Gap 6.7 mmol/L (3-11); BUN 19 mg/dL (7-18); Bilirubin, Total 0.6 mg/dL (0.2-1.0); CO2 32.3 mmol/L (21.0-32.0); Calcium 9.4 mg/dL (8.5-10.1); Chloride 100 mmol/L (98-107); Estimated GFR 71.32 (mL/min/1.73m2); Glucose 173 mg/dL (74-106); Potassium 3.7 mmol/L (3.5-5.1); Sodium 139 mmol/L (136-145); TSH 3.60 uIU/mL (0.36-3.74); Total Protein 7.3 g/dL (6.4-8.2)
== END 2025-07-21 01:54 | disposition home or self-care (01) ==
LOC: LBO 01:53
PROVIDERS: PCP Student in an Organized Health Care Education/Training Program; Visit Provider Nurse Practitioner
DX: Z08 Encounter for follow-up examination after completed treatment for malignant neoplasm (principal); C76.0 Malignant neoplasm of head, face and neck
CPT/HCPCS: 36415; 80053; 84439; 84443; 85025

== ENCOUNTER → 2025-08-28 08:57 | Outpatient (BNVA) | payer MEDICARE, OTHER, SELFPAY | PROVIDERS: PCP Student in an Organized Health Care Education/Training Program; Referring Provider Student in an Organized Health Care Education/Training Program; Visit Provider Physical Therapy Assistant | DX: Z12.11 Encounter for screening for malignant neoplasm of colon (principal) | CPT/HCPCS: S0285 ==

== ENCOUNTER → 2025-09-09 08:38 | Outpatient (BNVA) | payer MEDICARE, OTHER, SELFPAY | PROVIDERS: PCP Student in an Organized Health Care Education/Training Program; Visit Provider Nurse Practitioner Gerontology | DX: R63.4 Abnormal weight loss (principal); N40.1 Benign prostatic hyperplasia with lower urinary tract symptoms; N13.8 Other obstructive and reflux uropathy; N32.89 Other specified disorders of bladder; R35.0 Frequency of micturition; R31.29 Other microscopic hematuria; E11.9 Type 2 diabetes mellitus without complications | CPT/HCPCS: 99213; 51798 ==

== ENCOUNTER 2025-09-12 09:05 | Day surgery (SDC) | payer MEDICARE, OTHER, SELFPAY ==
--- NOTE | 2025-09-11 18:26 | PDOC.DSDIS_ITS ---
Date of service: 09/12/25 Discharge Plan Disposition Patient Disposition: Home Condition: Good Discharge Details Reason For Visit: screening colonoscopy Attending Provider: Jeferson Bustamante Primary Care Provider: Grey Cash Home Meds and New Rx's Prescriptions: Continued ketoconazole 2 % cream 1 applic topical DAILY PRN acetaminophen 500 mg tablet 500 mg PO DAILY PRN cholecalciferol (vitamin D3) [Vitamin D3] 50 mcg (2,000 unit) tablet 50,000 unit PO MONTHLY docusate sodium [Colace] 100 mg capsule 100 mg PO BID magnesium oxide 400 mg magnesium capsule 400 mg PO DAILY tamsulosin [Flomax] 0.4 mg capsule 0.4 mg PO DAILY Qty: 90 1RF metoprolol succinate 100 mg Tablet Extended Release 24 Hr 100 mg PO HS multivitamin Tablet 1 tab PO DAILY Jardiance 10 mg tablet 10 mg PO DAILY Qty: 90 0RF potassium chloride [Klor-Con M10] 10 mEq tablet,ER particles/crystals 10 meq PO BID Patient Comments: TAKE 1 TABLET BY MOUTH TWICE A DAY Discontinued bisacodyl [Dulcolax (bisacodyl)] 5 mg tablet,delayed release (DR/EC) 5 mg PO ONCE Qty: 4 0RF Rx Instructions: Take per colonoscopy instructions provided by ordering providers office polyethylene glycol 3350 17 gram/dose powder 17 g PO ONCE Qty: 238 0RF Rx Instructions: Take per colonoscopy instructions provided by ordering providers office Discharge Instructions Instructions: Colon polyps, Diverticulosis Additional Instructions: Junior, was good to meet you today, and hope you feel well after the procedure. There are a few findings to summarize. The first is that there is a small lesion on the lower part of your anus. Honestly it is hard to say what this might be. Sometimes it can be simple irritation from the bowel prep. Occasionally external hemorrhoids can look this way, but anal warts and other lesions can also have this appearance. I did do a biopsy of this today to see if that can help decipher the nature of this tissue. Unlike polypectomy of traditional colonoscopies, a biopsy on this part of your skin can be quite painful. I did inject some local anesthetic to help with discomfort, but I would expect to have some pain around your anus over the coming hours and days. Using Tylenol, ibuprofen, and [id number] treatments for hemorrhoids that contain lidocaine may be helpful in the coming days. It may also result in a little bit of bleeding associated with some bowel movements or on the toilet paper. I would expect that that would improve in the days to come. Similarly, there are some small polypoid lesions at the top part of the anal column. I think these are all probably related. I did some biopsies of this as well. You also had more traditional appearing colon polyps which were removed today. These will be sent off to the pathologist in addition to the biopsies mentioned above to better characterize the polyps, and that information will be used to guide the timing of future colonoscopies. Lastly, you have some evidence of diverticulosis. These are weak spots in the muscular layer of the wall that typically accumulate as we age. I will attach some basic information here about typical approaches to diverticular management, as well as colorectal polyps. If you need anything, or have any questions, please do not hesitate to call at any time. Otherwise I will be in touch once the biopsy results are all available. 1. If tolerated, consume a soft, low fiber diet for 1-2 days. 2[address] Do not drive, drink alcohol, operate machinery, make critical decisions, or do activities that require coordination or balance for 24 hours. 3. Because air was put into your colon during the procedure, expelling air from your rectum (passing gas or farting) is normal. 4. You may not have a bowel movement for 1-3 days because of the colonoscopy prep. This is normal. 5. Go directly to the emergency room if you notice any of the following: Develop chills (warm to touch), or if you have a thermometer and your temperature is above 101 Difficulty breathing or difficultly swallowing Persistent vomiting Severe abdominal pain, other than gas cramps Severe chest pain Black, tarry stools Any bleeding – exceeding one tablespoon 6. Call your physician if the site where your intravenous was started becomes red, swollen, painful, and warm to touch. 7. Your physician has reviewed your pre-procedure medications. Please continue to take those medications as previously ordered. You will be given specific information/education regarding any changes to your medications before leaving. Stand Alone Forms: Anesthesia Discharge Inst., Cat Keane ([facility]), Portal Inform ation Activity:: Activity as Tolerated Diet:: As Tolerated Discharge Orders Discharge Orders: Discharge Order (Routine); Ordered 09/11/25 Ordered By: Jeferson Bustamante DS: Diagnosis Discharge Diagnosis (1) Encounter for screening colonoscopy: Status: Acute Asessment and Plan: Follow-up on biopsy and polypectomy results
--- NOTE | 2025-09-11 18:28 | COLE_ITS ---
Date of service: 09/12/25 Time of Service: 10:51 Colonoscopy Report Date of procedure: 09/12/25 Pre-op diagnosis general: screening colonoscopy Post-op diagnosis procedure note: other (Anal lesion, rectal polyps, diverticulosis, colon polyps) Procedure: colonoscopy with polypectomy Surgeon: Jeferson Bustamante Anesthesia Type: General:No Airway Estimated blood loss (mL): 10 Pathology: other (Anal ulcer, rectal polyps, colon polyp at 40 cm, colon polyp at 30 cm) Complications: None Disposition: same day Indications: Junior is a 70 year old man who needs a screening colonoscopy Prep: Miralax/Dulcolax Procedure Start Time: 10:16 Procedure End Time: 10:38 Retraction Time: 9 Findings: Anal ulcer, rectal polyps, colon polyp at 40 cm, colon polyp at 30 cm, diverticulosis Procedure Description: After the induction of anesthesia, and with the patient in left lateral decubitus position, I began by performing an external anorectal exam. On the right side of the anus is a 0.5 cm area of ulceration. Some of the features of this appear consistent with anal intraepithelial neoplasia, or perhaps an anal wart. Next, I performed a digital rectal exam. This felt normal. I then advanced a colonoscope into the rectal vault and perform retroflexion. There are some villous appearing polyps right at the top portion of the anal column, as well as a pedunculated appearing polyp in the distal portion of the rectal vault. These were removed with cold forceps with minimal bleeding. I then withdrew the camera, and reexamined the ulceration on the anus. I injected a small amount of local anesthetic mixed with epinephrine was carefully injected into the subcutaneous layer, and the cold forceps biopsies of the colonoscope were used to sample this. There was minimal bleeding. I brought the camera back into the rectal vault, and using irrigation, I then advanced the colonoscope beyond the rectal folds and into the sigmoid colon before advancing towards the cecum. There is sigmoid diverticulosis. The scope was noted to be in the cecum by identification of the ileocecal valve and appendiceal orifice. I then began withdrawing the colonoscope using repeated irrigation as necessary for full evaluation of the colonic mucosa. Around 40 cm from the anal verge was a 0.25 cm flat polyp. This was removed with cold forceps without any difficulty. There was minimal bleeding. Similarly, another 0.5 cm flat polyp was found at 30 cm past the anal verge. This was also removed with cold forceps polypectomy. Once the scope was withdrawn to the level of the rectum, great care was taken to examine portions of the rectal folds. The previously mentioned polypectomy sites. Hemostatic. Finally, the scope was withdrawn and the patient was brought to the same-day surgery recovery unit as the anesthetic wore off. The findings and instructions were shared with the patient prior to discharge. [place] Bowel Prep [place] Bowel Prep Right Colon: 3 Left Colon: 3 Transverse Colon: 3 Total Score: 9
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
[2025-09-12 09:51] VITALS: BP 109/81; PULSE 87; RESP 16; TEMP 36.5; O2SAT 95
[2025-09-12 10:00] VITALS: BMI 24.3
[2025-09-12] MEDS: Lactated Ringers 1,000 ML 80 ML IV (10:02)
[2025-09-12] MEDS: Lidocaine 1% Pres-Free W/EPI 1/200,000 10 ML VIAL (10:22)
--- NOTE | 2025-09-12 10:22 | BOWEL_PTH ---
PATIENT: Junior Cruz LOC: [facility] U#:[id number] AGE/SX: 70/M ROOM: RE09/12/[address]: Jeferson Bustamante MD : 1955 BED: DIS: 09/12/2025 SPEC #: [id number] RECD: 09/12/25 12:51 STATUS: ALBER RE #: [id number] CARLA: 09/12/25 10:[address]: Jeferson Bustamante DEPT: Surgical Specimen RECD BY: Yari Killian ENTERED: 09/12/25 12:52 SP TYPE: Bowel OTHR DR: Grey Cash Tissues: 1 - BIOPSY BOWEL 2 - BIOPSY BOWEL 3 - BIOPSY BOWEL 4 - BIOPSY BOWEL Procedures: GROSS AND MICRO LEVEL 4 Comments: [id number]
[2025-09-12 10:45] VITALS: BP 81/59; PULSE 75; RESP 17; TEMP 36.6; O2SAT 99
--- NOTE | 2025-09-12 10:57 | W.ANESPOSTOP ---
Postoperative Evaluation Date, Time and Location Date Performed: 09/12/25 Time Performed: 10:57 Patient Location: Day Surgery Unit Vital Signs Most Recent Imported Vital Signs: Most Recent Vital Signs Temp Pulse Resp BP Pulse Ox 36.6 C 75 17 81/59 L 99 09/12/25 10:45 09/12/25 10:45 09/12/25 10:45 09/12/25 10:45 09/12/25 10:45 Pain Score Most Recent Pain Score: Most Recent Pain Score Pain Level 0 09/12/25 10:45 Assessment Mental Status: Awake (Alert & Oriented to Patient Baseline) Airway and Respiratory Function: Patent airway with normal (patient baseline) respiratory exam Cardiovascular Function: Hemodynamically Stable Hydration Status: Adequately Hydrated Nausea & Vomiting: No Nausea or Vomiting Pain: Pt. Denies Any Pain Peripheral Nerve Block: Patient did not receive a nerve block Postoperative Comments:: Blood pressure remains soft, patient asymptomatic. within 20% of baseline. I am fine with his discharge so long as no symptoms when initially ambulating.
[2025-09-12 11:19] VITALS: BP 112/84; PULSE 80; RESP 16; TEMP 36.6; O2SAT 97
== END 2025-09-12 11:26 | disposition home or self-care (01) ==
LOC: SUR 09:06
PROVIDERS: PCP Student in an Organized Health Care Education/Training Program; Visit Provider Surgery
PROC: 0DJD8ZZ Inspection of Lower Intestinal Tract, Via Natural or Artificial Opening Endoscopic (ICD-10-PCS; CPT 45378; principal; 2025-09-12 10:30)
DX: Z12.11 Encounter for screening for malignant neoplasm of colon (principal); R85.613 High grade squamous intraepithelial lesion on cytologic smear of anus (HGSIL); I10 Essential (primary) hypertension; E11.9 Type 2 diabetes mellitus without complications; K57.30 Diverticulosis of large intestine without perforation or abscess without bleeding; D12.5 Benign neoplasm of sigmoid colon; L98.9 Disorder of the skin and subcutaneous tissue, unspecified
CPT/HCPCS: 45380; 88305; J2004; J2371; J2704

== ENCOUNTER 2025-09-18 02:14 | Outpatient (CLI) | payer MEDICARE, OTHER, SELFPAY ==
--- NOTE | 2025-09-19 11:33 | W.PFT ---
Date of service: 09/18/25 Time of Service: 10:08 Pulmonary Function Test Result Indications: ILD Impression 1. Good patient effort was noted. ATS standards for reproducibility were met. 2. Spirometry was normal 3. TLC was reduced at 71% predicted, consistent with mild restrictive lung disease 4. DLCO was 47%, consistent with a severe defect in alveolar gas exchange
== END 2025-09-18 02:15 | disposition home or self-care (01) ==
LOC: RT 02:14
PROVIDERS: PCP Student in an Organized Health Care Education/Training Program; Visit Provider Physician Assistant Surgical
DX: J84.9 Interstitial pulmonary disease, unspecified (principal)
CPT/HCPCS: 94010; 94726; 94729

== ENCOUNTER 2025-09-19 10:02 | Outpatient (REF) | payer MEDICARE, OTHER, SELFPAY ==
[2025-09-19 14:59] LABS: Abs Immature Grans 0.02 10^3/uL (0.0-0.06); HCT 44.8 % (40.0-50.0); HGB 14.7 g/dL (13.5-17.5); Immature Grans % 0.3 %; MCH 28.5 pg (27.0-33.0); MCHC 32.8 % (32.0-36.0); MCV 87 fL (80-95); MPV 9.9 fL (8.0-11.0); Platelet Count 197 10^3/uL (130-400); RBC 5.16 10^6/uL (4.36-5.78); RDW 14.8 % (11.8-14.1); RDW-SD 47.2 fL; WBC 6.88 10^3/uL (4.4-10.8)
[2025-09-19 15:10] LABS: Iron 71 ug/dL (65-175); Total Iron Binding Capacity 331 ug/dL (250-425)
[2025-09-19 15:14] LABS: Vitamin D 25 Total 56 ng/mL (30-100)
[2025-09-19 15:15] LABS: Ferritin 148 ng/mL (11-307)
[2025-09-19 15:16] LABS: Vitamin B12 370 pg/mL (211-911)
[2025-09-19 15:38] LABS: Folate > 24.0 ng/mL (>5.38)
== END 2025-09-19 10:03 | disposition home or self-care (01) ==
LOC: NCHCN 10:02
PROVIDERS: PCP Student in an Organized Health Care Education/Training Program; Visit Provider Student in an Organized Health Care Education/Training Program
DX: Z86.2 Personal history of diseases of the blood and blood-forming organs and certain disorders involving the immune mechanism (principal); E55.9 Vitamin D deficiency, unspecified; I10 Essential (primary) hypertension
CPT/HCPCS: 82306; 82043; 82570; 82607; 82728; 82746; 83540; 83550; 85025